=== PATIENT | male | born 1965 | race Caucasian/White ===

== ENCOUNTER 2025-01-28 21:31 | Observation (INO) ==
[2025-01-28 22:03] LABS: Appearance Urine Clear (Clear); Glucose Urine UA Negative (Negative)
[2025-01-28 22:04] LABS: Hematocrit (blood only) 41.2 % (42.0-52.0); Hemoglobin 14.2 g/dl (14.0-18.0); Immature Granulocytes # (auto) 0.02 K/uL (0.01-0.20); Immature Granulocytes % (auto) 0.2 %; Mean Corpuscular Hemoglobin 29.8 pg (25.0-34.0); Mean Corpuscular Volume 86.6 fL (80.0-100.0); Platelet Count 157 K/uL (130-400); RDW Standard Deviation 41.9 fL (36.4-46.3); Red Blood Count 4.76 M/uL (4.70-6.10); White Blood Count 9.10 K/ul (4.8-10.8)
[2025-01-28] MEDS: ONDANSETRON INJ 2 MG/ML 2 ML VIAL IV STA (22:08)
[2025-01-28 22:20] LABS: Alanine Aminotransferase 22.0 U/L (7-52); Albumin Globulin Ratio 1.5 (0.9-2); Alkaline Phosphatase 46.0 U/L (34-104); Anion Gap 8.0 (3-11); Bilirubin,Total 0.8 mg/dl (0.2-1.0); Blood Urea Nitrogen 13.0 mg/dl (6-23); Calcium 9.1 mg/dl (8.6-10.3); Carbon Dioxide 23.0 mmol/L (21-32); Chloride 105.0 mmol/L (98-107); Creatinine Clr Calc Pharmacy 132.0 ml/min; Globulin 3.0 gm/dl (2.5-4.0); Glucose 115.0 mg/dl (70-99(Fasting)); Lipase 22.0 U/L (11-82); Potassium 3.6 mmol/L (3.5-5.1); Sodium 136.0 mmol/L (136-145); Total Protein 7.4 gm/dl (6.0-8.3)
--- NOTE | 2025-01-28 22:56 | Emergency Department Note ---
Impression & Plan Abdominal pain, acute, right upper quadrant, Acute cholecystitis, Cholelithiasis ED Provider Note HISTORY OF PRESENT ILLNESS: Patient is a 59-year-old male presenting with abdominal pain and nausea. Patient reports that he started having generalized abdominal pain earlier this afternoon that has progressively worsened. He has had multiple episodes of nausea and dry heaving but has not vomited. Denies any diarrhea. He reports subjective fevers, stating he gets diaphoretic with the increased intensity and pain. Currently rates the pain an 8 out of 10 and describes it as "the most severe cramps have ever had." He denies any history of abdominal surgeries. He has a history of coronary bypass and is on aspirin and Xarelto. He denies any recent sick contact exposures. Denies any dysuria or hematuria. ROS: as above PHYSICAL EXAM: Constitutional: Patient appears in no acute distress. HENT: Head: Normocephalic and atraumatic. Eyes: EOMI, PERRL Mouth/Throat: Mucous membranes moist. Neck: Trachea midline. Neck supple. Cardiovascular: RRR, No murmurs, rubs or gallops. Intact distal pulses. Pulmonary/Chest: No respiratory distress. Breath sounds clear and equal bilaterally. No wheezes or rales. Abdominal: Abdomen soft, no rebound or guarding. RUQ TTP Musculoskeletal: No edema, tenderness or deformity noted. Skin: Warm and dry. No rash, erythema, pallor or cyanosis Psychiatric: Appropriate mood and affect for situation. Neurological: Alert and keenly responsive. CN II-XII grossly intact, moving all extremities equally and fully. MDM: - Vitals signs showed hypertension - History obtained via parent. History as above. - Chronic conditions affecting care: HTN; HLD; CAD (s/p CABG on Xarelto); GERD - Differential diagnoses include, but are not limited to: Biliary colic; cholangitis; cholecystitis; hepatitis; right lower lobe pneumonia; pulmonary embolism; pyelonephritis; herpes zoster; perforated duodenal ulcer - Order placed for continuous cardiac monitoring. At this time, monitor showed rate of 53 bpm with normal sinus rhythm, per my interpretation. - External medical records reviewed. [facility] practice office visit note dated 04/30/2024 was reviewed. Patient was seen for routine follow-up. He is noted to have an extensive cardiac history. He is status post three-vessel CABG as of 2018. - Laboratory workup interpreted by myself showed - CT abdomen/pelvis with IV contrast showed distended gallbladder and cholelithiasis. - US gallbladder obtained. Images were reviewed by myself and showed a large stone in the gallbladder neck and free fluid adjacent to the gallbladder, per my interpretation. home service technician notes the patient was positive for Moore sign. - Discussed case with general surgeon on-call, Dr. Penn, at 00:44. [place] request n.p.o. after midnight and admit to medicine for IV antibiotics and medical clearance. He initially stated that the patient would be put on the OR schedule for tomorrow if medically cleared. However, patient is on Xarelto and he states that his Xarelto will need to be held so the surgery cannot occur tomorrow, but still plan for admission for IV antibiotics and surgical consultation. - IV zosyn ordered - Discussion was had with case managers about patient's case and need for admission - Hospitalist consulted for admission at 1:30 AM on 01/29/2025 - [facility] ASSESSMENT AND PLAN: Diagnosis: Acute right upper quadrant abdominal pain; acute cholecystitis; cholelithiasis Plan: Admit Past Med/Surg History Problem List (Updated 01/29/25 @ 00:57 by Genevieve Du MD) Cholelithiasis (Acute) Acute cholecystitis (Acute) Abdominal pain, acute, right upper quadrant (Acute) Chest pain Palpitations Coronary disease Medical History On anticoagulant therapy xarelto daily Hyperlipidemia HTN (hypertension) GERD (gastroesophageal reflux disease) controlled Prediabetes Palpitations chronic, intermittent Hx of chest pain Coronary disease follows w/ Dr Leann GARZON (shortness of breath on exertion) cardiac related Surgical History Hx of cardiac catheterization last done 04/2023- no stents; 07/2021, 2020 and 2017 total of 5 stents over 3 procedures all done at [facility] History of coronary artery bypass graft x 3 05/2018- [facility]. Social History Smoking Status: Never smoker Second Hand Exposure: No; Do You Dip or Chew Tobacco: No; Hx Alcohol Use: No Hx Substance Use: No Preferred Language: Mexican Communication Ability: Effective Wood Products Manufacturer Required: No Beliefs That Will Affect Care: None Current Living Situation: Spouse Feels Safe at Home: Yes Assistive Devices: Glasses Allergies Allergies Allergy/AdvReac Type Severity Reaction Status Date / Time No Known Allergies Allergy Verified 01/28/25 23:05 Home Meds Home Medications Medication Instructions Recorded Confirmed ascorbate calcium (vitamin C) 500 500 mg PO DAILY 11/28/23 01/28/25 mg tablet isosorbide mononitrate 60 mg 60 mg PO QAM 11/28/23 01/28/25 tablet,extended release 24 hr nitroglycerin 0.4 mg sublingual 0.4 mg sublingual Q5M PRN Chest 11/28/23 01/28/25 tablet Pain omega-3 fatty acids 1,000 mg 1,000 mg PO DAILY 11/28/23 01/28/25 capsule rivaroxaban 2.5 mg tablet (Xarelto) 2.5 mg PO BID 11/28/23 01/28/25 rosuvastatin 40 mg tablet 40 mg PO HS 11/28/23 01/28/25 cyanocobalamin (vitamin B-12) 1,000 mcg PO DAILY 01/28/25 01/28/25 1,000 mcg tablet (Vitamin B-12) Previous Rx's Medication Instructions Recorded pantoprazole 40 mg tablet,delayed 40 mg PO DAILY #90 tabs 02/22/24 release amlodipine 2.5 mg tablet 2.5 mg PO HS #90 tabs 05/05/24 aspirin 81 mg chewable tablet 81 mg PO DAILY #90 tabs 05/05/24 ezetimibe 10 mg tablet (Zetia) 10 mg PO HS #90 tabs 05/05/24 Results & Data (ED) Vital Signs Vital Signs - 24 hr 01/28/25 21:35 01/28/25 21:42 01/28/25 21:42 Temperature 36.4 C L Temperature Source Temporal Artery Scan Pulse Rate 61 Pulse Rate [Finger] 61 Pulse Rhythm [Finger] Regular Pulse Strength [Finger] Normal Respiratory Rate 20 20 Respiratory Effort / Characteristics Non-Labored Spontaneous Non-Labored Spontaneous Respiratory Depth Normal Normal Respiratory Pattern Regular Regular Blood Pressure 183/86 H Blood Pressure [Right Arm] 175/102 H Blood Pressure Mean 118 Blood Pressure Mean [Right Arm] 126 Blood Pressure Position [Right Arm] Lying Pulse Oximetry 100 98 Oxygen Delivery Method Room Air Room Air Room Air Sepsis Recent Fever Within 48 Hours No Sepsis New/Unexplained Change in Mental Status No Sepsis Action Taken by Nursing No Action Required 01/28/25 22:49 01/29/25 00:59 Temperature Temperature Source Pulse Rate 52 L Pulse Rate [Finger] 55 L Pulse Rhythm [Finger] Pulse Strength [Finger] Respiratory Rate 20 Respiratory Effort / Characteristics Respiratory Depth Respiratory Pattern Blood Pressure Blood Pressure [Right Arm] 158/89 H Blood Pressure Mean Blood Pressure Mean [Right Arm] 112 Blood Pressure Position [Right Arm] Pulse Oximetry 98 Oxygen Delivery Method Room Air Sepsis Recent Fever Within 48 Hours Sepsis New/Unexplained Change in Mental Status Sepsis Action Taken by Nursing Laboratory Data 01/28/25 21:47 01/28/25 21:47 Lab Results 01/28/25 Range/Units 21:47 WBC 9.10 (4.8-10.8) K/ul RBC 4.76 (4.70-6.10) M/uL Hgb 14.2 (14.0-18.0) g/dl Hct 41.2 L (42.0-52.0) % MCV 86.6 (80.0-100.0) fL MCH 29.8 (25.0-34.0) pg MCHC 34.5 (32.0-36.0) g/dL RDW Std Deviation 41.9 (36.4-46.3) fL RDW Coeff of Roman 13.2 (11.5-14.5) % Plt Count 157 (130-400) K/uL MPV 10.1 (9.4-12.4) fL Immature Gran % (Auto) 0.2 % Neut % (Auto) 76.4 % Lymph % (Auto) 12.9 % [place] % (Auto) 9.3 % Eos % (Auto) 1.0 % Baso % (Auto) 0.2 % Neut # (Auto) 6.95 H (1.40-6.50) K/uL Lymph # (Auto) 1.17 L (1.20-3.40) K/uL [place] # (Auto) 0.85 H (0.11-0.59) K/uL Eos # (Auto) 0.09 (0.00-0.50) K/uL Baso # (Auto) 0.02 (0.00-0.20) K/uL Immature Gran # (Auto) 0.02 (0.01-0.20) K/uL Sodium 136 (136-145) mmol/L Potassium 3.6 (3.5-5.1) mmol/L Chloride 105 (98-107) mmol/L Carbon Dioxide 23 (21-32) mmol/L Anion Gap 8 (3-11) BUN 13 (6-23) mg/dl Creatinine 0.73 (0.6-1.4) mg/dl Est Cr Clr Drug Dosing 132.0 ml/min eGFR 103.51 BUN/Creatinine Ratio 17.8 (10-20) Glucose 115 H (70-99(Fasting)) mg/dl Lactate 1.6 (0.4-2.0) mmol/L Calcium 9.1 (8.6-10.3) mg/dl Total Bilirubin 0.8 (0.2-1.0) mg/dl AST 21 (13-39) U/L ALT 22 (7-52) U/L Alkaline Phosphatase 46 (34-104) U/L Total Protein 7.4 (6.0-8.3) gm/dl Albumin 4.4 (3.4-5.0) gm/dl Globulin 3.0 (2.5-4.0) gm/dl Albumin/Globulin Ratio 1.5 (0.9-2) Lipase 22 (11-82) U/L Urine Color Yellow Urine Appearance Clear (Clear) Urine pH 7.5 (4.5-7.5) Ur Specific [place] 1.022 (1.000-1.030) Urine Protein Negative (Negative) Urine Glucose (UA) Negative (Negative) Urine Ketones Negative (Negative) Urine Blood Negative (Negative) Urine Nitrite Negative (Negative) Urine Bilirubin Negative (Negative) Urine Urobilinogen Negative (Negative) Ur Leukocyte Esterase Negative (Negative) Urine Comment Administered Medications Discontinued Medications Fentanyl Citrate (Fentanyl Citrate Pf 100 Mcg/2 Ml Vial) 50 mcg IV NOW STA Stop: 01/28/25 22:01 Last Admin: 01/28/25 22:08 Dose: 50 mcg Documented By: NAW Piperacillin Sod/Tazobactam Sod (Zosyn) 4.5 gm in 100 mls @ 200 mls/hr IV NOW ONE; Protocol Stop: 01/29/25 01:11 Last Admin: 01/29/25 00:58 Dose: 200 mls/hr Documented By: CATALINA Ioversol (Optiray 320 100ml) 100 ml IV ONCE ONE Stop: 01/28/25 23:10 Last Admin: 01/28/25 23:09 Dose: 93 ml Documented By: ROBYN Ondansetron HCl (Ondansetron Inj 2 Mg/Ml 2 Ml Vial) 4 mg IV NOW STA Stop: 01/28/25 22:01 Last Admin: 01/28/25 22:08 Dose: 4 mg Documented By: KONG Imaging Data Radiologist's Impression: Abdomen/Pelvis CT 01/28/25 21:42 Exam(s): CT ABDOMEN + PELVIS With Contrast IV Amt: 93 ML OPTIRAY 320 EXAM: CT Abdomen and Pelvis With Intravenous Contrast CLINICAL HISTORY: Reason for exam: abd pain; nausea. TECHNIQUE: Axial computed tomography images of the abdomen and pelvis with intravenous contrast. CTDI is 27.54 mGy and DLP is 1420.38 mGy-cm. Automated exposure control was utilized for the study. A dose lowering technique was utilized adhering to the principles of ALARA. CONTRAST: Patient received 93 ML OPTIRAY 320 of IV contrast COMPARISON: None. FINDINGS: Lung bases: Left basilar linear/patchy areas of atelectasis/consolidation seen with trace left pleural fluid.. Mildly enlarged heart. Calcified coronary arterial atherosclerosis. ABDOMEN: Liver: Unremarkable. Focal fatty infiltration along the falciform ligament. No solid mass. Gallbladder and bile ducts: Distended gallbladder. A 2.0 cm and a 1.1 cm calcified stone in the neck of the bladder seen.. No ductal dilation. Pancreas: No contour deforming mass identified. No ductal dilation. Spleen: Unremarkable. No splenomegaly. Adrenals: Unremarkable. No mass. Kidneys and ureters: Unremarkable. No solid mass. No hydronephrosis. Stomach and bowel: A small hiatal hernia. No obstruction. Descending colonic/sigmoid diverticulosis coli. No evidence of acute diverticulitis. No mucosal thickening. PELVIS: Appendix: No findings to suggest acute appendicitis. Bladder: Unremarkable. No mass. Reproductive: Unremarkable as visualized. ABDOMEN and PELVIS: Intraperitoneal space: No free air. No significant fluid collection. Bones/joints: No acute fracture. No dislocation. A T9 vertebral compression deformity of indeterminate age. Soft tissues: Unremarkable. Vasculature: Diffuse calcified atherosclerosis of the aortoiliac vasculature.. No abdominal aortic aneurysm. Lymph nodes: Unremarkable. No enlarged lymph nodes. Other findings: Small fat-containing bilateral inguinal hernias IMPRESSION: Distended gallbladder. Cholelithiasis. Sigmoid diverticulosis coli. No evidence of acute diverticulitis. Left lung base: Linear and patchy areas of atelectasis/consolidation seen with a trace left pleural fluid. Calcified/noncalcified atherosclerotic disease. . Electronically signed by: Leon Quan MD, SAMEER 01/29/25 00:15 AM Discharge Plan Visit Data Chief Complaint: Abdominal Pain Stated Complaint: ABD PAIN ED Provider: Genevieve Du Discharge Problem: Abdominal pain, acute, right upper quadrant, Acute cholecystitis, Cholelithiasis Condition: Fair Forms Stand Alone Forms: My [facility] Prescriptions Prescriptions: No Action pantoprazole 40 mg tablet,delayed release (DR/EC) 40 mg PO DAILY Qty: 90 3RF amlodipine 2.5 mg tablet 2.5 mg PO HS Qty: 90 3RF aspirin 81 mg tablet,chewable 81 mg PO DAILY Qty: 90 3RF ezetimibe [Zetia] 10 mg tablet 10 mg PO HS Qty: 90 3RF ascorbate calcium (vitamin C) 500 mg tablet 500 mg PO DAILY isosorbide mononitrate 60 mg tablet extended release 24 hr 60 mg PO QAM nitroglycerin 0.4 mg tablet, sublingual 0.4 mg sublingual Q5M PRN (Reason: Chest Pain) Rx Instructions: do not exceed 3 doses per episode omega-3 fatty acids 1,000 mg capsule 1,000 mg PO DAILY rosuvastatin 40 mg tablet 40 mg PO HS Xarelto 2.5 mg tablet 2.5 mg PO BID cyanocobalamin (vitamin B-12) [Vitamin B-12] 1,000 mcg Tablet 1,000 mcg PO DAILY Referrals Referrals: Annalisa Herman DO [Primary Care Provider] -
[2025-01-28] MEDS: OPTIRAY 320 100ml IV ONE (23:09)
--- NOTE | 2025-01-29 00:16 | CT Scan Report ---
Exam(s): CT ABDOMEN + PELVIS With Contrast IV Amt: 93 ML OPTIRAY 320 EXAM: CT Abdomen and Pelvis With Intravenous Contrast CLINICAL HISTORY: Reason for exam: abd pain; nausea. TECHNIQUE: Axial computed tomography images of the abdomen and pelvis with intravenous contrast. CTDI is 27.54 mGy and DLP is 1420.38 mGy-cm. Automated exposure control was utilized for the study. A dose lowering technique was utilized adhering to the principles of ALARA. CONTRAST: Patient received 93 ML OPTIRAY 320 of IV contrast COMPARISON: None. FINDINGS: Lung bases: Left basilar linear/patchy areas of atelectasis/consolidation seen with trace left pleural fluid.. Mildly enlarged heart. Calcified coronary arterial atherosclerosis. ABDOMEN: Liver: Unremarkable. Focal fatty infiltration along the falciform ligament. No solid mass. Gallbladder and bile ducts: Distended gallbladder. A 2.0 cm and a 1.1 cm calcified stone in the neck of the bladder seen.. No ductal dilation. Pancreas: No contour deforming mass identified. No ductal dilation. Spleen: Unremarkable. No splenomegaly. Adrenals: Unremarkable. No mass. Kidneys and ureters: Unremarkable. No solid mass. No hydronephrosis. Stomach and bowel: A small hiatal hernia. No obstruction. Descending colonic/sigmoid diverticulosis coli. No evidence of acute diverticulitis. No mucosal thickening. PELVIS: Appendix: No findings to suggest acute appendicitis. Bladder: Unremarkable. No mass. Reproductive: Unremarkable as visualized. ABDOMEN and PELVIS: Intraperitoneal space: No free air. No significant fluid collection. Bones/joints: No acute fracture. No dislocation. A T9 vertebral compression deformity of indeterminate age. Soft tissues: Unremarkable. Vasculature: Diffuse calcified atherosclerosis of the aortoiliac vasculature.. No abdominal aortic aneurysm. Lymph nodes: Unremarkable. No enlarged lymph nodes. Other findings: Small fat-containing bilateral inguinal hernias IMPRESSION: Distended gallbladder. Cholelithiasis. Sigmoid diverticulosis coli. No evidence of acute diverticulitis. Left lung base: Linear and patchy areas of atelectasis/consolidation seen with a trace left pleural fluid. Calcified/noncalcified atherosclerotic disease. . Electronically signed by: Leon Quan MD, DABR 01/29/25 00:15 AM
[2025-01-29] MEDS: PIPERACILLIN/TAZOBACTAM 4.5 GM/100 ML BAG IV ONE (00:58)
--- NOTE | 2025-01-29 01:43 | Ultrasound Report ---
EXAM: US gallbladder CLINICAL HISTORY: Right upper quadrant abdominal pain. TECHNIQUE: Limited ultrasound of the liver and gallbladder was performed in greyscale and Doppler. Multiple images were obtained in transverse and longitudinal planes. COMPARISON: No prior studies are available for comparison. FINDINGS: Liver: Liver appears mildly enlarged in size, measuring 16.6 cm, with increased parenchymal echogenicity. No evidence of focal lesions, cysts, or masses. Hepatic vasculature appears normal. Gallbladder: The gallbladder is distended, measuring 10.9 cm in length. Wall thickness measures 3 mm. Mild sludge is noted in the gallbladder lumen. A large stone is seen in the neck of the gallbladder, measuring about 2.7 x 1.5 cm. Mild pericholecystic free fluid is seen. Moore's sign is positive. Biliary Tree: Common bile duct diameter: 5 mm. Pancreas; The visualized pancreas is within normal limits. The tail of the pancreas is obscured by the gut gases. Right kidney; It measures 12.9 cm in length. Normal parenchymal echotexture with adequate cortical thickness. No hydronephrosis is seen. IMPRESSION: 1. Distended gallbladder containing mild sludge, GB neck stone, and mild pericholecystic free fluid with positive Moore sign representing acute cholecystitis. 2. Hepatomegaly with grade 2 fatty liver. 3. Clinical and lab correlation is recommended. Electronically signed by Reinier Whyte 01-29-2025 01:43 AM
--- NOTE | 2025-01-29 01:47 | History & Physical Report ---
Date of Service January 29, 2025 Assessment & Plan (1) Acute cholecystitis: (2) Cholelithiasis: Plan 59-year-old male PMHx anemia, A-fib on rivaroxaban, GERD, MAY, prediabetes, CAD s/p CABG x 3 (2018) and stent who presents for nausea and feelings of being fever starting day of arrival as well as abdominal pain. ED evaluation reveals CBC without leukocytosis, H&H 14.2/41.2; CMP grossly unremarkable with exception of glucose 115; lactate 1.6; lipase 22; UA negative for infection; CTAP distended gallbladder with cholelithiasis, sigmoid diverticulosis coli, no acute diverticulitis, linear patchy areas of atelectasis/consolidation with a trace L pleural effusion, calcified/noncalcified atherosclerotic disease; gallbladder ultrasound distended GB containing sludge, neck stone, mild pericholecystic free fluid with positive Moore sign (acute cholecystitis), hepatomegaly grade 2 fa tty liver;. Provided with Zosyn 4.5 g IV, Zofran 4 mg IV, and fentanyl 50 mcg in ED. #Acute cholecystitis/Cholelithiasis Presenting with abdominal pain, nausea, and feelings of fever starting day of arrival. - CBC without leukocytosis, stable H&H; CMP grossly unremarkable, LFTs WNL; lactate 1.6; lipase 22 - CBC, BMP am - CTAP distended GB with cholelithiasis - GBUS distended GB containing sludge, neck stone, mild pericholecystic free fluid with positive Moore sign (acute cholecystitis), hepatomegaly grade 2 fatty liver - NPO - LR @ 100 mL/hr - Zofran as needed N/V - Dilaudid prn pain - deescalate as patient tolerates - Zosyn 4.5 g IV started - continue - Gen sx consulted - appreciate input + recs #A-fib/CAD s/p CABG (2018) x 3 and stents/HLD- EKG pending; amlodipine, Imdur, Xarelto, ezetimibe, rosuvastatin - continue all EXCEPT Xarelto #GERD- Pantoprazole - continue #Anemia- H/H 14.2/41.2 on admission, no bleeding - Trend CBC #MAY- CPAP HS - continue Dispo: Admit, med/sx VTE Prophylaxis: SCDs, HOLD XARELTO (also holding ASA) This document was dictated utilizing Interactive Fate. Please excuse any grammatical errors that may be secondary to use of this software. Admission and Anticipated Discharge Date Admission Date: 01/29/2025 History of Present Illness Chief Complaint: Abdominal pain Primary Care Provider: Annalisa Herman DO 59-year-old male PMHx anemia, A-fib on rivaroxaban, GERD, MAY, prediabetes, CAD s/p CABG x 3 (2018) and stent who presents for nausea and feelings of being fever starting day of arrival as well as abdominal pain. Patient states that the morning [employer] he woke up and had breakfast. Following eating his meal, he started feel "uncomfortable". He states that this discomfort lasted throughout the day, describing symptoms as gas pains that would come and go in different way to severity but was always present. It was spread across to his entire abdomen but was more so localized to the RUQ. He did have nausea with an episode of vomiting and states that only bile came out. [place] warm and sweaty during episode of vomiting, but no reported fever. At around 1600 he states that the pain became much worse and almost intolerable. At its worst, the pain was an 8 out of 10 on the pain scale. At present the pain is a 2 out of 10 on the pain scale. He has not had this happen before. No fever or chills, no sick contacts, BM normal. Patient does occasionally experience palpitations, none at present. Denies chest pain, SOB, diarrhea/constipation, LUTS, URI symptoms, fever/chills, numbness/tingling, LUTS, weakness, or syncope. His last dose of Xarelto was the morning [employer]GUIDE (01/28/2025). ED evaluation reveals CBC without leukocytosis, H&H 14.2/41.2; CMP grossly unremarkable with exception of glucose 115; lactate 1.6; lipase 22; UA negative for infection; CTAP distended gallbladder with cholelithiasis, sigmoid diverticulosis coli, no acute diverticulitis, linear patchy areas of atelectasis/consolidation with a trace L pleural effusion, calcified/noncalcified atherosclerotic disease; gallbladder ultrasound distended GB containing sludge, neck stone, mild pericholecystic free fluid with positive Moore sign (acute cholecystitis), hepatomegaly grade 2 fatty liver;. Provided with Zosyn 4.5 g IV, Zofran 4 mg IV, and fentanyl 50 mcg in ED. Please see Dr. Granados's attestation for adjustments/additions to treatment plan. Allergies Allergy/AdvReac Type Severity Reaction Status Date / Time No Known Allergies Allergy Verified 01/28/25 23:05 Home Medications Medication Instructions Recorded Confirmed Type ascorbate calcium (vitamin C) 500 500 mg PO DAILY 11/28/23 01/28/25 History mg tablet isosorbide mononitrate 60 mg 60 mg PO QAM 11/28/23 01/28/25 History tablet,extended release 24 hr nitroglycerin 0.4 mg sublingual 0.4 mg sublingual Q5M PRN Chest 11/28/2301/28 History tablet Pain omega-3 fatty acids 1,000 mg 1,000 mg PO DAILY 11/28/23 01/28/25 History capsule rivaroxaban 2.5 mg tablet (Xarelto) 2.5 mg PO BID 11/28/23 01/28/25 History rosuvastatin 40 mg tablet 40 mg PO HS 11/28/23 01/28/25 History pantoprazole 40 mg tablet,delayed 40 mg PO DAILY #90 tabs 02/22/24 01/28/25 Rx release amlodipine 2.5 mg tablet 2.5 mg PO HS #90 tabs 05/05/24 01/28/25 Rx aspirin 81 mg chewable tablet 81 mg PO DAILY #90 tabs 05/05/24 01/28/25 Rx ezetimibe 10 mg tablet (Zetia) 10 mg PO HS #90 tabs 05/05/24 01/28/25 Rx cyanocobalamin (vitamin B-12) 1,000 mcg PO DAILY 01/28/25 01/28/25 History 1,000 mcg tablet (Vitamin B-12) Past Med/Surg History Problem List Cholelithiasis (Acute) Acute cholecystitis (Acute) Abdominal pain, acute, right upper quadrant (Acute) Chest pain Palpitations Coronary disease Medical History On anticoagulant therapy xarelto daily Hyperlipidemia HTN (hypertension) GERD (gastroesophageal reflux disease) controlled Prediabetes Palpitations chronic, intermittent Hx of chest pain Coronary disease follows w/ Dr Leann GARZON (shortness of breath on exertion) cardiac related Surgical History Hx of cardiac catheterization last done 04/2023- no stents; 07/2021, 2020 and 2017 total of 5 stents over 3 procedures all done at [facility] History of coronary artery bypass graft x 3 05/2018- [facility]. Social History Smoking Status: Never smoker Second Hand Exposure: No; Do You Dip or Chew Tobacco: No; Hx Alcohol Use: No Hx Substance Use: No Preferred Language: Telugu Communication Ability: Effective Health Information Tech Required: No Beliefs That Will Affect Care: None Current Living Situation: Spouse Feels Safe at Home: Yes Assistive Devices: Glasses Review of Systems Review of Systems: All systems reviewed & are unremarkable except as noted in Subjective Physical Exam Physical Exam: General: No acute distress Skin: Warm and dry Head: Normocephalic, atraumatic Eyes: PERRL, conjunctivae clear, sclera non-icteric ENT: External ear and ear canal without swelling; nose atraumatic; fair dentition, tongue normal appearance, pharynx normal Neck: Supple, no LAD Cardio: RRR, no M/G/R, S1 and S2 normal Resp: No respiratory distress, Lungs CTA in all lobes bilaterally, no wheezes, rales, or rhonchi Abdomen: Soft, symmetric, tenderness to palpation RUQ, positive Moore sign; No masses or hepatosplenomegaly; Bowel sounds normoactive MSK: No deformities; pulses palpable and equal; no edema. Neuro: Awake, alert; Sensation intact bilaterally; CN grossly intact Psych: Appropriate mood and affect; good judgement and insight. Results & Data Results & Data Vital Signs (Past 12 Hours) Vital Signs Temp Pulse Pulse Resp BP BP Pulse Ox 01/29/25 00:59 55 L 20 158/89 H 98 01/28/25 22:49 52 L 01/28/25 21:42 01/28/25 21:42 61 20 175/102 H 98 01/28/25 21:35 36.4 C L 61 20 183/86 H 100 O2 Del Method 01/29/25 00:59 Room Air 01/28/25 22:49 01/28/25 21:42 Room Air 01/28/25 21:42 Room Air 01/28/25 21:35 Room Air Laboratory Results 01/28/25 21:47 WBC 9.10 RBC 4.76 Hgb 14.2 Hct 41.2 L MCV 86.6 MCH 29.8 MCHC 34.5 RDW Std Deviation 41.9 RDW Coeff of Roman 13.2 Plt Count 157 MPV 10.1 Immature Gran % (Auto) 0.2 Neut % (Auto) 76.4 Lymph % (Auto) 12.9 [place] % (Auto) 9.3 Eos % (Auto) 1.0 Baso % (Auto) 0.2 Neut # (Auto) 6.95 H Lymph # (Auto) 1.17 L [place] # (Auto) 0.85 H Eos # (Auto) 0.09 Baso # (Auto) 0.02 Immature Gran # (Auto) 0.02 Sodium 136 Potassium 3.6 Chloride 105 Carbon Dioxide 23 Anion Gap 8 BUN 13 Creatinine 0.73 Est Cr Clr Drug Dosing 132.0 eGFR 103.51 BUN/Creatinine Ratio 17.8 Glucose 115 H Lactate 1.6 Calcium 9.1 Total Bilirubin 0.8 AST 21 ALT 22 Alkaline Phosphatase 46 Total Protein 7.4 Albumin 4.4 Globulin 3.0 Albumin/Globulin Ratio 1.5 Lipase 22 Urine Color Yellow Urine Appearance Clear Urine pH 7.5 Ur Specific [place] 1.022 Urine Protein Negative Urine Glucose (UA) Negative Urine Ketones Negative Urine Blood Negative Urine Nitrite Negative Urine Bilirubin Negative Urine Urobilinogen Negative Ur Leukocyte Esterase Negative Urine Comment Diagnostic Findings Abdomen/Pelvis CT 01/28/25 21:42 Exam(s): CT ABDOMEN + PELVIS With Contrast IV Amt: 93 ML OPTIRAY 320 EXAM: CT Abdomen and Pelvis With Intravenous Contrast CLINICAL HISTORY: Reason for exam: abd pain; nausea. TECHNIQUE: Axial computed tomography images of the abdomen and pelvis with intravenous contrast. CTDI is 27.54 mGy and DLP is 1420.38 mGy-cm. Automated exposure control was utilized for the study. A dose lowering technique was utilized adhering to the principles of ALARA. CONTRAST: Patient received 93 ML OPTIRAY 320 of IV contrast COMPARISON: None. FINDINGS: Lung bases: Left basilar linear/patchy areas of atelectasis/consolidation seen with trace left pleural fluid.. Mildly enlarged heart. Calcified coronary arterial atherosclerosis. ABDOMEN: Liver: Unremarkable. Focal fatty infiltration along the falciform ligament. No solid mass. Gallbladder and bile ducts: Distended gallbladder. A 2.0 cm and a 1.1 cm calcified stone in the neck of the bladder seen.. No ductal dilation. Pancreas: No contour deforming mass identified. No ductal dilation. Spleen: Unremarkable. No splenomegaly. Adrenals: Unremarkable. No mass. Kidneys and ureters: Unremarkable. No solid mass. No hydronephrosis. Stomach and bowel: A small hiatal hernia. No obstruction. Descending colonic/sigmoid diverticulosis coli. No evidence of acute diverticulitis. No mucosal thickening. PELVIS: Appendix: No findings to suggest acute appendicitis. Bladder: Unremarkable. No mass. Reproductive: Unremarkable as visualized. ABDOMEN and PELVIS: Intraperitoneal space: No free air. No significant fluid collection. Bones/joints: No acute fracture. No dislocation. A T9 vertebral compression deformity of indeterminate age. Soft tissues: Unremarkable. Vasculature: Diffuse calcified atherosclerosis of the aortoiliac vasculature.. No abdominal aortic aneurysm. Lymph nodes: Unremarkable. No enlarged lymph nodes. Other findings: Small fat-containing bilateral inguinal hernias IMPRESSION: Distended gallbladder. Cholelithiasis. Sigmoid diverticulosis coli. No evidence of acute diverticulitis. Left lung base: Linear and patchy areas of atelectasis/consolidation seen with a trace left pleural fluid. Calcified/noncalcified atherosclerotic disease. . Electronically signed by: Leon Quan MD, DABR 01/29/25 00:15 AM Gallbladder Ultrasound 01/28/25 22:00 EXAM: US gallbladder CLINICAL HISTORY: Right upper quadrant abdominal pain. TECHNIQUE: Limited ultrasound of the liver and gallbladder was performed in greyscale and Doppler. Multiple images were obtained in transverse and longitudinal planes. COMPARISON: No prior studies are available for comparison. FINDINGS: Liver: Liver appears mildly enlarged in size, measuring 16.6 cm, with increased parenchymal echogenicity. No evidence of focal lesions, cysts, or masses. Hepatic vasculature appears normal. Gallbladder: The gallbladder is distended, measuring 10.9 cm in length. Wall thickness measures 3 mm. Mild sludge is noted in the gallbladder lumen. A large stone is seen in the neck of the gallbladder, measuring about 2.7 x 1.5 cm. Mild pericholecystic free fluid is seen. Moore's sign is positive. Biliary Tree: Common bile duct diameter: 5 mm. Pancreas; The visualized pancreas is within normal limits. The tail of the pancreas is obscured by the gut gases. Right kidney; It measures 12.9 cm in length. Normal parenchymal echotexture with adequate cortical thickness. No hydronephrosis is seen. IMPRESSION: 1. Distended gallbladder containing mild sludge, GB neck stone, and mild pericholecystic free fluid with positive Moore sign representing acute cholecystitis. 2. Hepatomegaly with grade 2 fatty liver. 3. Clinical and lab correlation is recommended. Electronically signed by Reinier Whyte 01-29-2025 01:43 AM Medications Administered Zosyn 4.5 g IV Zofran 4 mg IV Fentanyl 50 mcg IV Code Status & VTE Plan Code Status Full Supervising Physician Co-Signing Physician Notes Patient seen and examined, chart reviewed, case discussed with SUBHASH Garcia I agree with the assessment and plan as document above. Patient with large stone in the neck of the gallbladder with free fluid, possibly early acute cholecystitis - Will provide pain management, antiemetics, Zosyn Hold Xarelto General Surgery consultation appreciated for possible cholecystectomy Remainder as above PG Care Time/CCT Total # of Minutes Spent Total Time Spent with Patient: Total time spent is greater than 50% in coordination of care (as documented) at patient's floor/unit and/or counseling patient: Coding Level of Care Code 12241 INT INP/OBS CARE 3/75MIN Diagnoses Acute cholecystitis K81.0 Cholelithiasis K80.20
[2025-01-29] MEDS ORDERED: ONDANSETRON INJ 2 MG/ML 2 ML VIAL IV PRN ×2 (02:28→04:43)
[2025-01-29] MEDS ORDERED: HYDROmorphone INJ 0.5 MG/0.5 ML SYR IV PRN ×2 (02:28)
[2025-01-29] MEDS: LACTATED RINGER'S 1,000 ML IV SCH (04:26)
[2025-01-29] MEDS ORDERED: NITROGLYCERIN SL 0.4 MG/TAB TAB SL PRN (04:43)
[2025-01-29] MEDS ORDERED: POLYETHYLENE (MIRALAX) 17 GM PACK PO PRN (04:43)
[2025-01-29] MEDS ORDERED: MELATONIN 3 MG TAB PO PRN (04:43)
[2025-01-29] MEDS: PIPERACILLIN/TAZOBACTAM 4.5 GM/100 ML BAG IV SCH (06:24)
[2025-01-29] MEDS: ISOSORBIDE MONO EXTENDED REL 60 MG TABCR PO SCH (08:34)
[2025-01-29 09:00] LABS: Hematocrit (blood only) 41.6 % (42.0-52.0); Hemoglobin 14.1 g/dl (14.0-18.0); Mean Corpuscular Hemoglobin 29.3 pg (25.0-34.0); Mean Corpuscular Volume 86.3 fL (80.0-100.0); Platelet Count 142 K/uL (130-400); RDW Standard Deviation 41.7 fL (36.4-46.3); Red Blood Count 4.82 M/uL (4.70-6.10); White Blood Count 8.20 K/ul (4.8-10.8)
[2025-01-29 09:16] LABS: Alanine Aminotransferase 17.0 U/L (7-52); Albumin Globulin Ratio 1.6 (0.9-2); Alkaline Phosphatase 44.0 U/L (34-104); Anion Gap 6.0 (3-11); Bilirubin,Total 0.9 mg/dl (0.2-1.0); Blood Urea Nitrogen 8.0 mg/dl (6-23); Calcium 8.7 mg/dl (8.6-10.3); Carbon Dioxide 25.0 mmol/L (21-32); Chloride 106.0 mmol/L (98-107); Creatinine Clr Calc Pharmacy 139.6 ml/min; Globulin 2.7 gm/dl (2.5-4.0); Glucose 102.0 mg/dl (70-99(Fasting)); Potassium 4.0 mmol/L (3.5-5.1); Sodium 137.0 mmol/L (136-145); Total Protein 6.9 gm/dl (6.0-8.3)
--- NOTE | 2025-01-29 10:12 | Surgery Consultation ---
Date of Consultation January 29, 2025 Assessment & Plan (1) Acute cholecystitis: (2) Cholelithiasis: (3) Abdominal pain, acute, right upper quadrant: (4) Coronary disease: Plan 59 yo male with extensive coronary artery disease s/p triple bypass in 2018 and 5 cardiac stents since bypass presented to ED with complaint of increasing upper abdominal pain with nausea and sweats since yesterday morning. Imaging showing 2.0 cm gallstone in neck of gallbladder with wall thickening and fluid consistent with acute cholecystitis. No leukocytosis. Pain controlled with medications. On Xarelto given CAD history and last dose was 01/28/25 in the morning. Continue to hold Xarelto. Cardiac clearance given history and will determine surgical timing. Continue IV Zosyn, pain management as needed, IV fluids. Clear liquids okay for today. NPO after midnight. Discussed with Dr. Penn who agrees with above. History of Present Illness Reason for Consultation: acute calculous cholecystitis Requesting Physician: Genevieve Du MD Attending Physician: Kevin Browne MD History of Present Illness Sherif is a 59 yo male with history of CAD with triple bypass in 2018 and 5 cardiac stents after bypass who presented to emergency department with increasin g upper abdominal pain that started yesterday morning and progressed throughout the day associated with nausea and dry heaves. No prior history of gallbladder issues. No abdominal surgery. Denies fever, chills, vomiting, chest pain , diarrhea, blood in stools, acholic stools, difficulty urinating, blood in urine, jaundice. Takes Xarelto and last dose was yesterday morning. States he has history of chronic shortness of breath with any activity since his bypass in 2018. Follows with cardiology, believes last ECHO was within the past year. Allergies Allergy/AdvReac Type Severity Reaction Status Date / Time No Known Allergies Allergy Verified 01/28/25 23:05 Home Medications Medication Instructions Recorded Confirmed Type ascorbate calcium (vitamin C) 500 500 mg PO DAILY 11/28/23 01/28/25 History mg tablet isosorbide mononitrate 60 mg 60 mg PO QAM 11/28/23 01/28/25 History tablet,extended release 24 hr nitroglycerin 0.4 mg sublingual 0.4 mg sublingual Q5M PRN Chest 11/28/23 01/28/25 History tablet Pain omega-3 fatty acids 1,000 mg 1,000 mg PO DAILY 11/28/23 01/28/25 History capsule rivaroxaban 2.5 mg tablet (Xarelto) 2.5 mg PO BID 11/28/23 01/28/25 History rosuvastatin 40 mg tablet 40 mg PO HS 11/28/23 01/28/25 History pantoprazole 40 mg tablet,delayed 40 mg PO DAILY #90 tabs 02/22/24 01/28/25 Rx release amlodipine 2.5 mg tablet 2.5 mg PO HS #90 tabs 05/05/24 01/28/25 Rx aspirin 81 mg chewable tablet 81 mg PO DAILY #90 tabs 05/05/24 01/28/25 Rx ezetimibe 10 mg tablet (Zetia) 10 mg PO HS #90 tabs 05/05/24 01/28/25 Rx cyanocobalamin (vitamin B-12) 1,000 mcg PO DAILY 01/28/25 01/28/25 History 1,000 mcg tablet (Vitamin B-12) Patient History Medical History On anticoagulant therapy xarelto daily Hyperlipidemia HTN (hypertension) GERD (gastroesophageal reflux disease) controlled Prediabetes Palpitations chronic, intermittent Hx of chest pain Coronary disease follows w/ Dr Leann GARZON (shortness of breath on exertion) cardiac related Surgical History Hx of cardiac catheterization last done 04/2023- no stents; 07/2021, 2020 and 2017 total of 5 stents over 3 procedures all done at [facility] History of coronary artery bypass graft x 3 05/2018- [facility]. Social History Smoking Status: Never smoker Second Hand Exposure: No; Do You Dip or Chew Tobacco: No; Hx Alcohol Use: No Hx Substance Use: No Preferred Language: Faroese Communication Ability: Effective Flakeboard Line Tender Required: No Beliefs That Will Affect Care: None Current Living Situation: Family Feels Safe at Home: Yes Assistive Devices: Glasses Review of Systems Review of Systems: All systems reviewed & are unremarkable except as noted in HPI & below Physical Exam Constitutional: WD/WN, vitals as above cooperative and comfortable; no acute distress and not ill appearing Respiratory: normal respiratory effort, lungs clear to auscultation Cardiovascular: RRR, no murmur, no edema Gastrointestinal (Abdomen): Inspection/Auscultation: abdomen normal to inspection; abdomen not distended Percussion/Palpation: + abdomen tender (RUQ on deep palpation, + Moore's) and abdomen soft; no guarding, abdomen not rigid and abdomen not firm Skin: no rashes, warm and dry Psychiatric: A+Ox3, euthymic affect Results & Data Vital Signs (Past 12 Hours) Vital Signs Pulse Pulse Resp BP Pulse Ox O2 Del Method 01/29/25 08:00 60 19 145/83 H 96 Room Air 01/29/25 07:10 51 L 16 138/84 97 Room Air 01/29/25 05:35 74 20 140/82 97 Room Air 01/29/25 04:00 72 20 140/86 98 Room Air 01/29/25 00:59 55 L 20 158/89 H 98 Room Air 01/28/25 22:49 52 L Laboratory Results 01/29/25 01/28/25 Range/Units 08:40 21:47 WBC 8.20 9.10 (4.8-10.8) K/ul RBC 4.82 4.76 (4.70-6.10) M/uL Hgb 14.1 14.2 (14.0-18.0) g/dl Hct 41.6 L 41.2 L (42.0-52.0) % MCV 86.3 86.6 (80.0-100.0) fL MCH 29.3 29.8 (25.0-34.0) pg MCHC 33.9 34.5 (32.0-36.0) g/dL RDW Std Deviation 41.7 41.9 (36.4-46.3) fL RDW Coeff of Roman 13.4 13.2 (11.5-14.5) % Plt Count 142 157 (130-400) K/uL MPV 10.4 10.1 (9.4-12.4) fL Immature Gran % (Auto) 0.2 % Neut % (Auto) 76.4 % Lymph % (Auto) 12.9 % [place] % (Auto) 9.3 % Eos % (Auto) 1.0 % Baso % (Auto) 0.2 % Neut # (Auto) 6.95 H (1.40-6.50) K/uL Lymph # (Auto) 1.17 L (1.20-3.40) K/uL [place] # (Auto) 0.85 H (0.11-0.59) K/uL Eos # (Auto) 0.09 (0.00-0.50) K/uL Baso # (Auto) 0.02 (0.00-0.20) K/uL Immature Gran # (Auto) 0.02 (0.01-0.20) K/uL Sodium 137 136 (136-145) mmol/L Potassium 4.0 3.6 (3.5-5.1) mmol/L Chloride 106 105 (98-107) mmol/L Carbon Dioxide 25 23 (21-32) mmol/L Anion Gap 6 8 (3-11) BUN 8 13 (6-23) mg/dl Creatinine 0.69 0.73 (0.6-1.4) mg/dl Est Cr Clr Drug Dosing 139.6 132.0 ml/min eGFR 105.29 103.51 BUN/Creatinine Ratio 11.6 17.8 (10-20) Glucose 102 H 115 H (70-99(Fasting)) mg/dl Lactate 1.6 (0.4-2.0) mmol/L Calcium 8.7 9.1 (8.6-10.3) mg/dl Total Bilirubin 0.9 0.8 (0.2-1.0) mg/dl AST 18 21 (13-39) U/L ALT 17 22 (7-52) U/L Alkaline Phosphatase 44 46 (34-104) U/L Total Protein 6.9 7.4 (6.0-8.3) gm/dl Albumin 4.2 4.4 (3.4-5.0) gm/dl Globulin 2.7 3.0 (2.5-4.0) gm/dl Albumin/Globulin Ratio 1.6 1.5 (0.9-2) Lipase 22 (11-82) U/L Urine Color Yellow Urine Appearance Clear (Clear) Urine pH 7.5 (4.5-7.5) Ur Specific [place] 1.022 (1.000-1.030) Urine Protein Negative (Negative) Urine Glucose (UA) Negative (Negative) Urine Ketones Negative (Negative) Urine Blood Negative (Negative) Urine Nitrite Negative (Negative) Urine Bilirubin Negative (Negative) Urine Urobilinogen Negative (Negative) Ur Leukocyte Esterase Negative (Negative) Urine Comment Diagnostic Findings Exam(s): CT ABDOMEN + PELVIS With Contrast IV Amt: 93 ML OPTIRAY 320 EXAM: CT Abdomen and Pelvis With Intravenous Contrast CLINICAL HISTORY: Reason for exam: abd pain; nausea. TECHNIQUE: Axial computed tomography images of the abdomen and pelvis with intravenous contrast. CTDI is 27.54 mGy and DLP is 1420.38 mGy-cm. Automated exposure control was utilized for the study. A dose lowering technique was utilized adhering to the principles of ALARA. CONTRAST: Patient received 93 ML OPTIRAY 320 of IV contrast COMPARISON: None. FINDINGS: Lung bases: Left basilar linear/patchy areas of atelectasis/consolidation seen with trace left pleural fluid.. Mildly enlarged heart. Calcified coronary arterial atherosclerosis. ABDOMEN: Liver: Unremarkable. Focal fatty infiltration along the falciform ligament. No solid mass. Gallbladder and bile ducts: Distended gallbladder. A 2.0 cm and a 1.1 cm calcified stone in the neck of the bladder seen.. No ductal dilation. Pancreas: No contour deforming mass identified. No ductal dilation. Spleen: Unremarkable. No splenomegaly. Adrenals: Unremarkable. No mass. Kidneys and ureters: Unremarkable. No solid mass. No hydronephrosis. Stomach and bowel: A small hiatal hernia. No obstruction. Descending colonic/sigmoid diverticulosis coli. No evidence of acute diverticulitis. No mucosal thickening. PELVIS: Appendix: No findings to suggest acute appendicitis. Bladder: Unremarkable. No mass. Reproductive: Unremarkable as visualized. ABDOMEN and PELVIS: Intraperitoneal space: No free air. No significant fluid collection. Bones/joints: No acute fracture. No dislocation. A T9 vertebral compression deformity of indeterminate age. Soft tissues: Unremarkable. Vasculature: Diffuse calcified atherosclerosis of the aortoiliac vasculature.. No abdominal aortic aneurysm. Lymph nodes: Unremarkable. No enlarged lymph nodes. Other findings: Small fat-containing bilateral inguinal hernias IMPRESSION: Distended gallbladder. Cholelithiasis. Sigmoid diverticulosis coli. No evidence of acute diverticulitis. Left lung base: Linear and patchy areas of atelectasis/consolidation seen with a trace left pleural fluid. Calcified/noncalcified atherosclerotic disease. EXAM: US gallbladder CLINICAL HISTORY: Right upper quadrant abdominal pain. TECHNIQUE: Limited ultrasound of the liver and gallbladder was performed in greyscale and Doppler. Multiple images were obtained in transverse and longitudinal planes. COMPARISON: No prior studies are available for comparison. FINDINGS: Liver: Liver appears mildly enlarged in size, measuring 16.6 cm, with increased parenchymal echogenicity. No evidence of focal lesions, cysts, or masses. Hepatic vasculature appears normal. Gallbladder: The gallbladder is distended, measuring 10.9 cm in length. Wall thickness measures 3 mm. Mild sludge is noted in the gallbladder lumen. A large stone is seen in the neck of the gallbladder, measuring about 2.7 x 1.5 cm. Mild pericholecystic free fluid is seen. Moore's sign is positive. Biliary Tree: Common bile duct diameter: 5 mm. Pancreas; The visualized pancreas is within normal limits. The tail of the pancreas is obscured by the gut gases. Right kidney; It measures 12.9 cm in length. Normal parenchymal echotexture with adequate cortical thickness. No hydronephrosis is seen. IMPRESSION: 1. Distended gallbladder containing mild sludge, GB neck stone, and mild pericholecystic free fluid with positive Moore sign representing acute cholecystitis. 2. Hepatomegaly with grade 2 fatty liver. 3. Clinical and lab correlation is recommended. Personally reviewed images above and concur with findings
--- NOTE | 2025-01-29 16:48 | Hospitalist Progress Note ---
Date of Service January 29, 2025 Assessment & Plan (1) Acute cholecystitis: (2) Cholelithiasis: Plan 59-year-old male PMHx anemia, A-fib on rivaroxaban, GERD, MAY, prediabetes, CAD s/p CABG x 3 (2017) and stent who presents for nausea and feelings of being fever starting day of arrival as well as abdominal pain. #Acute cholecystitis/Cholelithiasis Presenting with abdominal pain, nausea, and feelings of fever starting day of arrival. CBC w/ no leukocytosis. CMP w/ stable LFTs. Lipase 22 CTAP: distended GB w/ cholelithiasis RUQ US: distended GB containing sludge, neck stone, mild pericholecystic free fluids w/ + greer sign (acute choley); hepatomegaly Continue IVF & IV Zosyn Zofran prn for N/V; Diluadid prn for pain. General surgery consulted --> requires cardiology & clearance and hold on Xarelto. Tentative plans for lap choley 01/29. NPO after midnight. #A-fib/CAD s/p CABG (2018) x 3 and stents/HLD EKG pending Cardiology consulted for clearance prior to surgery. amlodipine, Imdur, Xarelto, ezetimibe, rosuvastatin - continue all EXCEPT Xarelto #GERD- Pantoprazole - continue #Anemia- H/H 14.2/41.2 on admission, no bleeding - Trend CBC #MAY- CPAP HS - continue Dispo: Admit, med/sx VTE Prophylaxis: SCDs, HOLD XARELTO (also holding ASA) Discussed w/ general surgery & cardiology 01/29 Admission and Anticipated Discharge Date Admission Date: January 29, 2025 Daily Gorman seen and examined this afternoon w/ Dr. Lagunas & nurse at bedside. Sherif denied any abdominal pain at time of encounter. Reports he is feeling much better & is tolerating clear liquids. He reports he is supposed to get a lap choley tomorrow. Physical Exam Constitutional: WD/WN, vitals as above Eyes: PERRL, conjunctivae normal, anicteric sclerae Neck: normal visual inspection Respiratory: normal respiratory effort Psychiatric: A+Ox3, euthymic affect Results & Data Results & Data Vital Signs (Past 12 Hours) Vital Signs Temp Pulse Resp BP Pulse Ox O2 Del Method 01/29/25 15:05 36.6 C 51 L 16 122/83 97 Room Air 01/29/25 14:36 62 15 114/74 97 Room Air 01/29/25 12:00 50 L 16 130/81 97 Room Air 01/29/25 08:00 60 19 145/83 H 96 Room Air 01/29/25 07:10 51 L 16 138/84 97 Room Air 01/29/25 05:35 74 20 140/82 97 Room Air PG Care Time/CCT Total # of Minutes Spent Total Time Spent with Patient: Total time spent is greater than 50% in coordination of care (as documented) at patient's floor/unit and/or counseling patient: Coding Level of Care Code None Diagnoses Acute cholecystitis K81.0 Cholelithiasis K80.20
[2025-01-29] MEDS: EZETIMIBE 10 MG TAB PO SCH (19:52)
[2025-01-29] MEDS: ROSUVASTATIN CALCIUM 20 MG TAB PO SCH (19:52)
[2025-01-30] MEDS: ACETAMINOPHEN 325 MG TAB PO PRN (05:51)
--- NOTE | 2025-01-30 08:01 | Cardiology Consultation ---
Date of Consultation January 29, 2025 Assessment & Plan (1) Preop cardiovascular exam: (2) Coronary disease: (3) Acute cholecystitis: (4) Hyperlipidemia: (5) Chronotropic incompetence: Plan From a cardiac standpoint, he is considered to be optimized for possible surgery. His vascular dose Xarelto is on hold (this usually only requires held x 2-3 days for surgery). As far as I am concerned, he can have surgery tomorrow as per the surgical team. Please not he is not on high dose Xarelto for Afib or thrombus. He should cont with ASA CCB and his nitrates. Will check ECG post op. Thank you for the consult. History of Present Illness Reason for Consultation: preop cardiac clearance-possible GB surgery Attending Physician: Kevin Browne MD History of Present Illness Mr. Eubanks is a very nice 59 y/o with a history of premature CAD hx CABG in 2017 in [facility] with a GARCIA to LAD, KAYDEN to RCA as well as SVG to OM. 2 years later he underwent CBI of the mid LAD 01/08/2020. His las LHC was in 2022 and showed patent GARCIA to LAD, RCA is a large vessel with patent stents but with retrograde flow in the KAYDEN graft which was small, possible atretic. THE SVG to OM is patent. The LAD has a subtotal occlusion, but the distal vessel is perfused via the GARCIA. The Cx shows a 99% subtotal occlusion-there was an attempt to pass a wire through this but was not possible due to the 90 degree bend of the vessel. Madical therapy was recommended. When I saw him last in the fall, he had fatigue as his main complaint. We did a stress echo on him, and he showed chronotropic insufficiency--we were only able to achieve 67% of his max predicted HR at 7:00 exercise. He is on no rate lowering medications. He has been on low dose vascular dose Xarelto 2.5mg bid for recurrent CAD NOT for Afib. He gets occasional angina, usually relieived with SL NTG. When I* saw him in the hospital he reports that his anginal pattern has been stable. He is her for acute adia and it is anticipated that he will need surgery. He is off the Xarelto since Sunday. Allergies Allergy/AdvReac Type Severity Reaction Status Date / Time No Known Allergies Allergy Verified 01/28/25 23:05 Home Medications Medication Instructions Recorded Confirmed Type ascorbate calcium (vitamin C) 500 500 mg PO DAILY 11/28/23 01/28/25 History mg tablet isosorbide mononitrate 60 mg 60 mg PO QAM 11/28/23 01/28/25 History tablet,extended release 24 hr nitroglycerin 0.4 mg sublingual 0.4 mg sublingual Q5M PRN Chest 11/28/23 01/28/25 History tablet Pain omega-3 fatty acids 1,000 mg 1,000 mg PO DAILY 11/28/23 01/28/25 History capsule rivaroxaban 2.5 mg tablet (Xarelto) 2.5 mg PO BID 11/28/23 01/28/25 History rosuvastatin 40 mg tablet 40 mg PO HS 11/28/23 01/28/25 History pantoprazole 40 mg tablet,delayed 40 mg PO DAILY #90 tabs 02/22/24 01/28/25 Rx release amlodipine 2.5 mg tablet 2.5 mg PO HS #90 tabs 05/05/24 01/28/25 Rx aspirin 81 mg chewable tablet 81 mg PO DAILY #90 tabs 05/05/24 01/28/25 Rx ezetimibe 10 mg tablet (Zetia) 10 mg PO HS #90 tabs 05/05/24 01/28/25 Rx cyanocobalamin (vitamin B-12) 1,000 mcg PO DAILY 01/28/25 01/28/25 History 1,000 mcg tablet (Vitamin B-12) Patient History Medical History On anticoagulant therapy xarelto daily Hyperlipidemia HTN (hypertension) GERD (gastroesophageal reflux disease) controlled Prediabetes Palpitations chronic, intermittent Hx of chest pain Coronary disease follows w/ Dr Leann GARZON (shortness of breath on exertion) cardiac related Surgical History Hx of cardiac catheterization last done 04/2023- no stents; 07/2021, 2020 and 2017 total of 5 stents over 3 procedures all done at [facility] History of coronary artery bypass graft x 3 05/2018- [facility]. Social History Smoking Status: Never smoker Second Hand Exposure: No; Do You Dip or Chew Tobacco: No; Hx Alcohol Use: No Hx Substance Use: No Preferred Language: Croatian Communication Ability: Effective Bufferer Required: No Beliefs That Will Affect Care: None Current Living Situation: Spouse Feels Safe at Home: Yes Safety Concerns: Feels Safe At This Time Assistive Devices: None Review of Systems Review of Systems: All systems reviewed & are unremarkable except as noted in HPI & below Physical Exam Physical Exam: AAO x 3 in NAD Respiratory: normal respiratory effort, lungs clear to auscultation Cardiovascular: RRR, no murmur, no edema Results & Data Vital Signs (Past 12 Hours) Vital Signs Temp Pulse Resp BP Pulse Ox O2 Del Method 01/29/25 19:58 36.5 C 52 L 18 145/89 H 97 Room Air ECG Additional Comments: Sinus frank, inferior ST-T wave changes similar to prior from 2022
[2025-01-30 08:18] LABS: Hematocrit (blood only) 40.7 % (42.0-52.0); Hemoglobin 13.5 g/dl (14.0-18.0); Mean Corpuscular Hemoglobin 29.2 pg (25.0-34.0); Mean Corpuscular Volume 87.9 fL (80.0-100.0); Platelet Count 140 K/uL (130-400); RDW Standard Deviation 44.0 fL (36.4-46.3); Red Blood Count 4.63 M/uL (4.70-6.10); White Blood Count 4.87 K/ul (4.8-10.8)
--- NOTE | 2025-01-30 08:27 | Surgery Progress Note ---
Date of Service January 30, 2025 Assessment & Plan (1) Acute cholecystitis: Plan: Cleared by cardiology per their note this AM Added to OR schedule for a Laparoscopic cholecystectomy with Dr Chavez for Sunday AM 01/31/25 ok for clear liquid diet today NPO at MN VSS, WBC wnl, continue IV abx As above. Starting to feel better from an abdominal standpoint. Cardiology okay with proceeding with surgery. Discussed risks as well as options (bleeding, infection, injury to a bile duct or other organ, DVT, PE, WV, CVA etc.) Questions answered. Will proceed tomorrow with laparoscopic cholecystectomy. Admission and Anticipated Discharge Date Admission Date: January 29, 2025 Subjective Pt denies n/v, abd pain, fever, chills, cp, sob Xarelto being held Saw his Managing Supervisor yesterday evening Review of Systems Constitutional: no fever and no chills Respiratory: no dyspnea Cardiovascular: no chest pain Gastrointestinal: no abdominal pain, no nausea and no vomiting Musculoskeletal: no muscle weakness Psychiatric: no confusion Physical Exam Constitutional: cooperative and comfortable; no acute distress Respiratory: normal respiratory effort and able to speak in complete sentences; no respiratory distress Gastrointestinal (Abdomen): Inspection/Auscultation: abdomen normal to inspection; abdomen not distended Percussion/Palpation: + abdomen tender (mildly TTP RUQ) and abdomen soft Psychiatric: A+Ox3, euthymic affect Results & Data Vital Signs (Past 12 Hours) Vital Signs Temp Pulse Resp BP Pulse Ox O2 Del Method 01/30/25 07:47 97.7 F 49 L 16 130/74 97 Room Air Results CBC w Diff Results: RBC 4.63 M/uL (4.70-6.10) L 01/30/25 WBC 4.87 K/ul (4.8-10.8) 01/30/25 Hgb 13.5 g/dl (14.0-18.0) L 01/30/25 Hct 40.7 % (42.0-52.0) L 01/30/25 MCV 87.9 fL (80.0-100.0) 01/30/25 MCH 29.2 pg (25.0-34.0) 01/30/25 MCHC 33.2 g/dL (32.0-36.0) 01/30/25 RDW Standard Deviation 44.0 fL (36.4-46.3) 01/30/25 RDW Coefficient of Variation 13.7 % (11.5-14.5) 01/30/25 Plt Count 140 K/uL (130-400) 01/30/25 MPV 10.7 fL (9.4-12.4) 01/30/25 Neutrophils (%) (Auto) 76.4 % 01/28/25 Lymphocytes (%) (Auto) 12.9 % 01/28/25 Monocytes # (Auto) 0.85 K/uL (0.11-0.59) H 01/28/25 Eosinophils # (Auto) 0.09 K/uL (0.00-0.50) 01/28/25 Immature Granulocyte % (Auto) 0.2 % 01/28/25 Neutrophils # (Auto) 6.95 K/uL (1.40-6.50) H 01/28/25 Lymphocytes # (Auto) 1.17 K/uL (1.20-3.40) L 01/28/25 Monocytes # (Auto) 0.85 K/uL (0.11-0.59) H 01/28/25 Eosinophils # (Auto) 0.09 K/uL (0.00-0.50) 01/28/25 Basophils # (Auto) 0.02 K/uL (0.00-0.20) 01/28/25 Immature Granulocyte # (Auto) 0.02 K/uL (0.01-0.20) 5 PG Care Time/CCT Total # of Minutes Spent Total Time Spent with Patient: Total time spent is greater than 50% in coordination of care (as documented) at patient's floor/unit and/or counseling patient: Coding Level of Care Code 06658 SUB INP/OBS CARE 08/16MIN Diagnoses Acute cholecystitis K81.0
[2025-01-30 08:33] LABS: Alanine Aminotransferase 19.0 U/L (7-52); Albumin Globulin Ratio 1.4 (0.9-2); Alkaline Phosphatase 42.0 U/L (34-104); Anion Gap 5.0 (3-11); Bilirubin,Total 0.9 mg/dl (0.2-1.0); Blood Urea Nitrogen 9.0 mg/dl (6-23); Calcium 8.7 mg/dl (8.6-10.3); Carbon Dioxide 27.0 mmol/L (21-32); Chloride 107.0 mmol/L (98-107); Creatinine Clr Calc Pharmacy 128.5 ml/min; Globulin 2.7 gm/dl (2.5-4.0); Glucose 100.0 mg/dl (70-99(Fasting)); Potassium 4.0 mmol/L (3.5-5.1); Sodium 139.0 mmol/L (136-145); Total Protein 6.6 gm/dl (6.0-8.3)
--- NOTE | 2025-01-30 08:49 | Electrocardiogram Report ---
Test Reason : Blood Pressure : */* mmHG Vent. Rate : 53 BPM Atrial Rate : 53 BPM P-R Int : 204 ms QRS Dur : 98 ms QT Int : 438 ms P-R-T Axes : 31 94 -41 degrees QTcB Int : 410 ms Sinus bradycardia Rightward axis T wave abnormality, consider inferior ischemia Abnormal ECG No previous ECGs available Confirmed by Simeon Noriega ([id number]) on 01/30/2025 8:48:45 AM Referred By: REFERRED SELF Confirmed By: Simeon Noriega
--- NOTE | 2025-01-30 15:46 | Hospitalist Progress Note ---
Date of Service January 30, 2025 Assessment & Plan (1) Acute cholecystitis: (2) Cholelithiasis: Plan 59-year-old male PMHx anemia, A-fib on rivaroxaban, GERD, MAY, prediabetes, CAD s/p CABG x 3 (2017) and stent who presents for nausea and feelings of being fever starting day of arrival as well as abdominal pain. #Acute cholecystitis/Cholelithiasis Presenting with abdominal pain, nausea, and feelings of fever starting day of arrival. CBC w/ no leukocytosis, hgb stable. CMP w/ stable LFTs. Lipase 22 CTAP: distended GB w/ cholelithiasis RUQ US: distended GB containing sludge, neck stone, mild pericholecystic free fluids w/ + greer sign (acute choley); hepatomegaly Continue IVF & IV Zosyn Zofran prn for N/V; Diluadid prn for pain. General surgery consulted --> Lap choley planned for 01/31. NPO after midnight. #A-fib/CAD s/p CABG (2018) x 3 and stents/HLD Cardiology consulted for clearance --> optimized for surgery from cardiac standpoint. amlodipine, Imdur, Xarelto, ezetimibe, rosuvastatin - continue all EXCEPT Xarel to #GERD- Pantoprazole - continue #MAY- CPAP HS - continue Dispo: Admit, med/sx VTE Prophylaxis: SCDs, HOLD XARELTO (also holding ASA) Admission and Anticipated Discharge Date Admission Date: January 29, 2025 Daily Gorman was seen and examined this morning. He reports he is feeling fine today. Denies any abdominal pain & is tolerating a liquid diet. He is to get a lap choley tomorrow morning. Physical Exam Constitutional: WD/WN, vitals as above Eyes: PERRL, conjunctivae normal, anicteric sclerae Neck: normal visual inspection Respiratory: normal respiratory effort Neurologic: PERRL, EOMI, accommodation nl, no face palsy, no dysarthria Psychiatric: A+Ox3, euthymic affect Results & Data Results & Data Vital Signs (Past 12 Hours) Vital Signs Temp Pulse Resp BP Pulse Ox O2 Del Method 01/30/25 14:25 36.6 C 48 L 16 113/65 95 Room Air 01/30/25 07:47 36.5 C 49 L 16 130/74 97 Room Air PG Care Time/CCT Total # of Minutes Spent Total Time Spent with Patient: Total time spent is greater than 50% in coordination of care (as documented) at patient's floor/unit and/or counseling patient: Coding Level of Care Code 74684 SUB INP/OBS CARE 2/35MIN Diagnoses Acute cholecystitis K81.0 Cholelithiasis K80.20
[2025-01-31 06:29] LABS: Hematocrit (blood only) 40.2 % (42.0-52.0); Hemoglobin 13.2 g/dl (14.0-18.0); Mean Corpuscular Hemoglobin 29.0 pg (25.0-34.0); Mean Corpuscular Volume 88.4 fL (80.0-100.0); Platelet Count 131 K/uL (130-400); RDW Standard Deviation 43.5 fL (36.4-46.3); Red Blood Count 4.55 M/uL (4.70-6.10); White Blood Count 5.48 K/ul (4.8-10.8)
[2025-01-31 06:42] LABS: Alanine Aminotransferase 16.0 U/L (7-52); Albumin Globulin Ratio 1.5 (0.9-2); Alkaline Phosphatase 40.0 U/L (34-104); Anion Gap 6.0 (3-11); Bilirubin,Total 0.9 mg/dl (0.2-1.0); Blood Urea Nitrogen 6.0 mg/dl (6-23); Calcium 8.7 mg/dl (8.6-10.3); Carbon Dioxide 27.0 mmol/L (21-32); Chloride 107.0 mmol/L (98-107); Creatinine Clr Calc Pharmacy 126.8 ml/min; Globulin 2.6 gm/dl (2.5-4.0); Glucose 89.0 mg/dl (70-99(Fasting)); Potassium 3.7 mmol/L (3.5-5.1); Sodium 140.0 mmol/L (136-145); Total Protein 6.5 gm/dl (6.0-8.3)
[2025-01-31] MEDS ORDERED: MIDAZOLAM HCL 1 MG/ML 2ML VIAL ONE (06:49)
[2025-01-31] MEDS ORDERED: ONDANSETRON INJ 2 MG/ML 2 ML VIAL ONE (06:49)
[2025-01-31] MEDS ORDERED: PROPOFOL IV EMULSION 10 MG/ML 20 ML VIAL IV ONE (06:49)
[2025-01-31] MEDS ORDERED: LIDOCAINE 2% 2 ML VIAL/AMP(20MG/ML) INFIL ONE ×7 (06:49→07:15)
[2025-01-31] MEDS ORDERED: DEXAMETHASONE SOD INJ 4 MG/ML VIAL ONE (06:49)
[2025-01-31] MEDS ORDERED: ROCURONIUM BROMIDE 10 MG/ML 5 ML VIAL IV ONE (06:50)
--- NOTE | 2025-01-31 07:08 | History & Physical Bridge Note ---
Date of Service January 31, 2025 History & Physical Bridge Note I have examined the patient, reviewed the History & Physical and in the interval since the performance of the History & Physical I have noted the following changes of clinical significance: no changes noted
[2025-01-31] MEDS ORDERED: ACETAMINOPHEN 1000 MG/100 ML IV IV ONE (07:16)
--- NOTE | 2025-01-31 07:36 | Anesthesiology Consultation ---
Date of Service January 31, 2025 Assessment & Plan Chart Review Chart Review: Acceptable Risk for Surgery and Patient NOT seen in Pre Admission Testing Consults Requested none ASA ASA4 Proposed Anesthesia Anesthesia Type: General Risk / Benefits Reviewed With: PT / POA / Parent / Guardian, Accepts Plan and Informed Consent Obtained History Surgery Operation Date: 01/31/25 07:30 Proposed Procedures p Laparoscopic Cholecystectomy - Puneet Chavez, DO Height/Weight Height: 6 ft 1 in Weight: 99.7 kg Allergies Allergy/AdvReac Type Severity Reaction Status Date / Time No Known Allergies Allergy Verified 01/28/25 23:05 Medications Home Medications Medication Instructions Recorded Confirmed Last Taken ascorbate calcium (vitamin C) 500 500 mg PO DAILY 11/28/23 01/28/25 01/28/25 mg tablet isosorbide mononitrate 60 mg 60 mg PO QAM 11/28/23 01/28/25 01/28/25 tablet,extended release 24 hr nitroglycerin 0.4 mg sublingual 0.4 mg sublingual Q5M PRN Chest 11/28/23 01/28/25 Unknown tablet Pain omega-3 fatty acids 1,000 mg 1,000 mg PO DAILY 11/28/23 01/28/25 01/28/25 capsule rivaroxaban 2.5 mg tablet (Xarelto) 2.5 mg PO BID 11/28/23 01/28/25 01/28/25 08:00 rosuvastatin 40 mg tablet 40 mg PO HS 11/28/23 01/28/25 01/27/25 pantoprazole 40 mg tablet,delayed 40 mg PO DAILY #90 tabs 02/22/24 01/28/25 01/28/25 release amlodipine 2.5 mg tablet 2.5 mg PO HS #90 tabs 05/05/24 01/28/25 01/27/25 aspirin 81 mg chewable tablet 81 mg PO DAILY #90 tabs 05/05/24 01/28/25 01/28/25 ezetimibe 10 mg tablet (Zetia) 10 mg PO HS #90 tabs 05/05/24 01/28/25 01/27/25 cyanocobalamin (vitamin B-12) 1,000 mcg PO DAILY 01/28/25 01/28/25 01/28/25 1,000 mcg tablet (Vitamin B-12) Active Medications Generic Name Dose Route Start Last Admin Trade Name Freq PRN Reason Stop Dose Admin Acetaminophen 650 mg 01/29/25 04:43 01/30/25 05:51 Acetaminophen 325 Mg Tab PO 02/28/25 04:42 650 mg Q4H PRN Administration pain/fever Amlodipine Besylate 2.5 mg 01/29/25 21:00 01/30/25 20:08 Amlodipine Besylate 5 Mg Tab PO 02/28/25 20:59 2.5 mg HS VILMA Administration Ezetimibe 10 mg 01/29/25 21:00 01/30/25 20:07 Ezetimibe 10 Mg Tab PO 02/28/25 20:59 10 mg HS VILMA Administration Lactated Ringer's 1,000 mls @ 100 mls/hr 01/29/25 02:30 01/31/25 04:15 Lr IV 02/01/25 02:29 100 mls/hr .Q10H VILMA Administration Piperacillin Sod/Tazobactam Sod 4.5 gm in 100 mls @ 25 mls/hr 01/29/25 06:00 01/31/25 05:56 Zosyn IV 02/08/25 05:59 25 mls/hr Q8H VILMA Administration Protocol Isosorbide Mononitrate 60 mg 01/29/25 09:00 01/30/25 08:31 Isosorbide Emanuel Extended Rel 60 Mg Tabcr PO 02/28/25 08:59 60 mg QAM VILMA Administration Pantoprazole Sodium 40 mg 01/29/25 09:00 01/30/25 08:31 Pantoprazole 40 Mg Tab PO 02/28/25 08:59 40 mg DAILY VILMA Administration Rosuvastatin Calcium 40 mg 01/29/25 21:00 01/30/25 20:07 Rosuvastatin Calcium 20 Mg Tab PO 02/28/25 20:59 40 mg HS VILMA Administration NPO Date Last Intake of Fluids: 01/30/25 Time Last Intake of Fluids: 22:00 Date Last Intake of Solids: 01/29/25 Time Last Intake of Solids: 18:00 Past Medical History Medical History On anticoagulant therapy xarelto daily Hyperlipidemia HTN (hypertension) GERD (gastroesophageal reflux disease) controlled Prediabetes Palpitations chronic, intermittent Hx of chest pain Coronary disease follows w/ Dr Leann GARZON (shortness of breath on exertion) cardiac related ASCVD Ao NIDDM MAY Obese Exercise / Class Metabolic Activity III < 4 Walking/Shop/Light housework Past Surgical History Surgical History Hx of cardiac catheterization last done 04/2023- no stents; 07/2021, 2020 and 2017 total of 5 stents over 3 procedures all done at [facility] History of coronary artery bypass graft x 3 05/2018- [facility]. Past Anesthesia History No Hx of Anesthesia Complications and No Family Hx of Anesthesia Complications History of PONV No Hx of PONV and No Hx of Motion Sickness Social History Smoking Status: Never smoker Do You Dip or Chew Tobacco: No Hx Alcohol Use: No Hx Substance Use: No substance use type: does not use Physical Exam Vital Signs Last Vital Signs Temp 36.8 C 01/30/25 20:04 Pulse 55 L 01/30/25 20:04 Resp 16 01/30/25 14:25 BP 128/73 01/30/25 20:04 Pulse Ox 99 01/30/25 20:04 O2 Del Method Room Air 01/30/25 20:04 Constitutional + obese; no acute distress ENMT Mouth: + dentition abnormality, + dental caries, + edentulous, + poor dentition and + loose teeth Thyromental Distance: > or= 3.5 Finger Breadths Mallampati Class: II Neck normal visual inspection, trachea midline and + facial hair; neck extension not limited Respiratory normal respiratory effort Auscultation: + diminished lung sounds Cardiovascular Rate/Rhythm: regular rate and regular rhythm Heart Sounds: no murmur Vessels: no carotid bruit Musculoskeletal Spine: normal cervical ROM and no pain with cervical ROM Extremities: extremities normal to inspection; full ROM of extremities Neurologic moves all extremities Motor/Sensory: no sensory deficit Psychiatric Orientation: alert and oriented x 3 Testing Laboratory Results 01/31/25 05:58 01/31/25 05:58 Urine Color Yellow 01/28/25 21:47 Urine Appearance Clear (Clear) 01/28/25 21:47 Urine pH 7.5 (4.5-7.5) 01/28/25 21:47 Ur Specific Welches 1.022 (1.000-1.030) 01/28/25 21:47 Urine Protein Negative (Negative) 01/28/25 21:47 Urine Glucose (UA) Negative (Negative) 01/28/25 21:47 Urine Ketones Negative (Negative) 01/28/25 21:47 Urine Nitrite Negative (Negative) 01/28/25 21:47 Ur Leukocyte Esterase Negative (Negative) 01/28/25 21:47 Electrocardiogram Date: 01/29/25 Findings: + SB @ (@ 53;RAD;T wave abnl) Echocardiogram Date: 12/19/23 EF: 55% LV Function: normal RWMA: + none Other Findings: + LVH (mild) and + diastolic dysfunction (Grade 2) Valvular Disease: + AI (mild AR)
[2025-01-31] MEDS: BUPIVACAINE/EPINEPHRINE 0.5% MPF 1:200,000 30 ML VIAL ONE (08:12)
[2025-01-31] MEDS ORDERED: ePHEDrine sulfate 50 MG/5 ML SYR ONE (08:16)
[2025-01-31] MEDS ORDERED: SUGAMMADEX SODIUM 200 MG/2 ML VIAL IV ONE (08:16)
--- NOTE | 2025-01-31 08:44 | Operative Report ---
PG Post Operative Report Pre & Post Diagnosis Operation Date: 01/31/25 07:30 Pre-Op Diagnosis: cholecystitis, cholelithiasis Post-Op Diagnosis: cholecystitis, cholelithiasis I identified the patient and participated in the time-out.: Yes Procedure Operation Date: 01/31/25 07:30 Actual Procedures p Laparoscopic Cholecystectomy(Not Applicable) - Puneet Chavez DO Surgeon Puneet Chavez DO Sr. Vendor Management Associate george Haynes Estimated Blood Loss 5 Findings Consistent with Post-Op Diagnosis Specimens gallbladder Description of Procedure After informed consent was obtained the patient was taken to the operating room and placed in the supine position. After successful intubation the abdomen was sterilely prepped and draped in usual fashion. A periumbilical incision was made with an 11 blade scalpel and carried down through the soft tissue using electrocautery. The anterior rectus fascia was opened using electrocautery and 2 #0 Vicryl stay sutures were placed. The peritoneum was elevated with hemostats and incised under direct vision using Metzenbaum scissors. A finger sweep was performed and a 12 mm Xie trocar was placed. The abdomen was insufflated to 18 mmHg. The laparoscope was inserted and the abdomen was examined in 360. No gross abnormalities were identified. A subxiphoid 5 mm port and 2 right upper quadrant 5 mm ports were placed under direct vision. The patient was placed in a reverse Trendelenburg position and slightly airplaned to the left. The gallbladder was grasped and elevated superiorly and laterally. A [place] dissector was used to take down adhesions around the neck of the gallbladder. The cystic duct was identified and skeletonized. It was clipped twice proximally and once distally and transected using a laparoscopic scissor. In similar fashion the cystic artery was identified and skeletonized clipped and divided. The gallbladder was removed from the gallbladder fossa with electrocautery. It was placed into an Endo Catch bag. Thorough irrigation was performed. At the end of the procedure there was adequate hemostasis and no evidence of any bile leaks. A final look around the abdomen showed no other abnormalities. The gallbladder and trochars were all removed and the abdomen was desufflated. The fascia of the camera port was closed using 0 Vicryl in a [id number] fashion. All the wounds were irrigated and closed using 4-0 Monocryl. Marcaine was injected around them for postoperative analgesia and skin glue used as a dressing. The patient was awaken extubated and transferred to recovery in stable condition. My physician's customer marketing assistant was present throughout the entire case... helped with prepping the patient. With exposure for trocar placement, as well as retracted the gallbladder throughout the case and also assisted with wound closure and dressing placement. I attest to the content of the Intraoperative Record and any orders documented therein. Any exceptions are noted below.
[2025-01-31] MEDS ORDERED: PROMETHAZINE HCL 6.25 MG in SODIUM CHLORIDE 0.9% 50 ML IV PRN (09:04)
[2025-01-31] MEDS ORDERED: FLUMAZENIL 0.1 MG/1 ML 10 ML VIAL IV PRN (09:04)
[2025-01-31] MEDS ORDERED: NALOXONE HCL 0.4 MG/1 ML VIAL/CARP IV PRN (09:04)
[2025-01-31] MEDS ORDERED: ATROPINE SULFATE 0.1 MG/ML 10ML SYR IV PRN (09:04)
[2025-01-31] MEDS ORDERED: HYDROmorphone INJ 1 MG/ML SYRINGE IV PRN (09:04)
[2025-01-31] MEDS ORDERED: ONDANSETRON INJ 2 MG/ML 2 ML VIAL IV PRN (09:04)
--- NOTE | 2025-01-31 09:41 | Anesthesiology Progress Note ---
Date of Service January 31, 2025 Anesthesia Post Procedure Vital Signs Vital Signs: Temp Pulse Pulse Resp BP Pulse Ox O2 Del Method 01/31/25 09:15 56 L 14 131/68 95 Room Air 01/31/25 09:05 36.4 C L 70 20 128/67 97 Room Air 01/31/25 08:55 64 15 121/62 100 Oxymask 01/31/25 08:45 36.1 C L 60 17 116/64 95 Oxymask 01/30/25 20:04 36.8 C 55 L 128/73 99 Room Air 01/30/25 14:25 36.6 C 48 L 16 113/65 95 Room Air O2 Flow Rate 01/31/25 09:15 01/31/25 09:05 01/31/25 08:55 10 01/31/25 08:45 10 01/30/25 20:04 01/30/25 14:25 Pain Intensity Abdomen: Pain Intensity: 6 Transfer of Care Handoff Completed per policy Notes Mental Status: alert / awake / arousable Patient Amnestic to Procedure: Yes Nausea / Vomiting: adequately controlled Pain: adequately controlled Airway Patency, RR, SpO2: stable & adequate BP & HR: stable & adequate Hydration State: stable & adequate Anesthetic Complications: no major complications apparent
[2025-01-31 10:01] VITALS: RESP 16
--- NOTE | 2025-01-31 12:33 | Cardiology Progress Note ---
Date of Service January 31, 2025 Assessment & Plan (1) Coronary disease: (2) Acute cholecystitis: Plan: s/p lap adia (3) Hyperlipidemia: (4) Chronotropic incompetence: Plan Overall he is doing well resume isosorbide and CCB. Hopefully can resume Xarelto tomorrow. Cont ASA. ECG post op unremarkable. Keep in mind he gets occasional angina regularly and will follow for this. Admission and Anticipated Discharge Date Admission Date: January 29, 2025 Subjective Patient seen s/p adia. Still tired. Relayed some angina at 3 am-VSS and it resolved spontaneously. no new c/o Review of Systems Review of Systems: All systems reviewed & are unremarkable except as noted in HPI & below Physical Exam Physical Exam: AAO x 3 in NAD Respiratory: normal respiratory effort, lungs clear to auscultation Cardiovascular: RRR, no murmur, no edema Results & Data Vital Signs (Past 12 Hours) Vital Signs Temp Pulse Pulse Resp BP Pulse Ox O2 Del Method 01/31/25 11:31 36.6 C 62 16 132/70 96 Room Air 01/31/25 10:26 57 L 16 141/74 H 96 Room Air 01/31/25 10:00 59 L 16 140/77 97 Room Air 01/31/25 09:30 36.4 C L 55 L 16 143/76 H 97 Room Air 01/31/25 09:15 56 L 14 131/68 95 Room Air 01/31/25 09:05 36.4 C L 70 20 128/67 97 Room Air 01/31/25 08:55 64 15 121/62 100 Oxymask 01/31/25 08:45 36.1 C L 60 17 116/64 95 Oxymask O2 Flow Rate 01/31/25 11:31 01/31/25 10:26 01/31/25 10:00 01/31/25 09:30 01/31/25 09:15 01/31/25 09:05 01/31/25 08:55 10 01/31/25 08:45 10 Laboratory Results Abnormal lab results 01/31/25 Range/Units 05:58 RBC 4.55 L (4.70-6.10) M/uL Hgb 13.2 L (14.0-18.0) g/dl Hct 40.2 L (42.0-52.0) % BUN/Creatinine Ratio 7.9 L (10-20) Medications Administered Current Inpatient Medications Acetaminophen (Acetaminophen 325 Mg Tab) 650 mg PO Q4H PRN PRN Reason: pain/fever Stop: 02/28/25 04:42 Last Admin: 01/30/25 05:51 Dose: 650 mg Amlodipine Besylate (Amlodipine Besylate 5 Mg Tab) 2.5 mg PO HS [facility]IL[facility] Stop: 02/28/25 20:59 Last Admin: 01/30/25 20:08 Dose: 2.5 mg Atropine Sulfate (Atropine Sulfate 0.1 Mg/Ml 10ml Syr) 0.5 mg IV Q1M PRN PRN Reason: PACU Use-HR<40 &/or Bradycardi Stop: 01/31/25 17:04 Ezetimibe (Ezetimibe 10 Mg Tab) 10 mg PO HS [facility] Stop: 02/28/25 20:59 Last Admin: 01/30/25 20:07 Dose: 10 mg Ephedrine Sulfate (Ephedrine Sulfate 50 Mg/Ml Amp) 5 mg IV Q5M PRN PRN Reason: PACU Use Only-SBP<90 mmHg Stop: 01/31/25 17:04 Fentanyl Citrate (Fentanyl Citrate Pf 100 Mcg/2 Ml Vial) 25 mcg IV Q5M PRN PRN Reason: PACU Use Only-Pain Stop: 01/31/25 17:04 Flumazenil (Flumazenil 0.1 Mg/1 Ml 10 Ml Vial) 0.2 mg IV Q2M PRN PRN Reason: PACU Use Only-Benzo Reversal Stop: 01/31/25 17:04 Hydromorphone HCl (Hydromorphone Inj 0.5 Mg/0.5 Ml Syr) 0.25 mg IV Q3H PRN PRN Reason: Pain (1,2,3,4,5) & Pre PT Stop: 02/12/25 02:27 Hydromorphone HCl (Hydromorphone Inj 0.5 Mg/0.5 Ml Syr) 0.5 mg IV Q3H PRN PRN Reason: Pain (6,7,8,9,10) Stop: 02/12/25 02:27 Hydromorphone HCl (Hydromorphone Inj 1 Mg/Ml Syringe) 0.25 mg IV Q5M PRN PRN Reason: PACU Use Only-Pain Stop: 01/31/25 17:04 Lactated Ringer's (Lr) 1,000 mls @ 100 mls/hr IV .Q10H [facility] Stop: 02/01/25 02:29 Last Admin: 01/31/25 04:15 Dose: 100 mls/hr Piperacillin Sod/Tazobactam Sod (Zosyn) 4.5 gm in 100 mls @ 25 mls/hr IV Q8H [facility]; Protocol Stop: 02/08/25 05:59 Last Infusion: 01/31/25 10:49 Dose: Infused Promethazine HCl 6.25 mg/ (Sodium Chloride) 50.25 mls @ 204 mls/hr IV ONCE PRN PRN Reason: PACU Use Only-Nausea/Vomiting Stop: 01/31/25 17:04 Isosorbide Mononitrate (Isosorbide [place] Extended Rel 60 Mg Tabcr) 60 mg PO QAM [facility] Stop: 02/28/25 08:59 Last Admin: 01/31/25 10:15 Dose: 60 mg Melatonin (Melatonin 3 Mg Tab) 3 mg PO HS PRN PRN Reason: Insomnia Stop: 02/28/25 04:42 Naloxone HCl (Naloxone Hcl 0.4 Mg/1 Ml Vial/Carp) 0.2 mg IV Q2M PRN PRN Reason: PACU Use Only-Opiate Reversal Stop: 01/31/25 17:04 Nitroglycerin (Nitroglycerin Sl 0.4 Mg/Tab Tab) 0.4 mg SL Q5M PRN PRN Reason: Chest Pain Stop: 02/28/25 04:42 Ondansetron HCl (Ondansetron Inj 2 Mg/Ml 2 Ml Vial) 4 mg IV Q6H PRN PRN Reason: Nausea And Vomiting Stop: 02/28/25 02:27 Ondansetron HCl (Ondansetron Inj 2 Mg/Ml 2 Ml Vial) 4 mg IV Q6H PRN PRN Reason: Nausea Stop: 02/28/25 04:42 Ondansetron HCl (Ondansetron Inj 2 Mg/Ml 2 Ml Vial) 4 mg IV ONCE PRN PRN Reason: PACU Use Only-Nausea/Vomiting Stop: 01/31/25 17:04 Oxycodone HCl (Oxycodone Hcl Ir 5 Mg Tab (Immediate Release)) 5 mg PO Q4H PRN PRN Reason: Moderate Pain (Scale 4, 5, 6) Stop: 02/14/25 10:05 Oxycodone HCl (Oxycodone Hcl Ir 5 Mg Tab (Immediate Release)) 10 mg PO Q4H PRN PRN Reason: Severe Pain (Scale 7, 8, 9,10) Stop: 02/14/25 10:05 Pantoprazole Sodium (Pantoprazole 40 Mg Tab) 40 mg PO DAILY [facility] Stop: 02/28/25 08:59 Last Admin: 01/31/25 10:15 Dose: 40 mg Polyethylene Glycol (Polyethylene (Miralax) 17 Gm Pack) 17 gm PO DAILY PRN PRN Reason: Constipation Stop: 02/28/25 04:42 Rosuvastatin Calcium (Rosuvastatin Calcium 20 Mg Tab) 40 mg PO HS [facility] Stop: 02/28/25 20:59 Last Admin: 01/30/25 20:07 Dose: 40 mg ECG Additional Comments: Repeat ECG post op unchanged
[2025-01-31] MEDS ORDERED: Nursing to Pharmacy Communication SCH (15:30)
--- NOTE | 2025-01-31 16:19 | Discharge Summary ---
Discharge Summary Date of Service January 31, 2025 Principal Dx & Hospital Course #1 = Principal Diagnosis (1) Acute cholecystitis: (2) Cholelithiasis: Plan 59-year-old male PMHx anemia, A-fib on rivaroxaban, GERD, MAY, prediabetes, CAD s/p CABG x 3 (2018) and stent who presents for nausea and feelings of being fever starting day of arrival as well as abdominal pain. #Acute cholecystitis/Cholelithiasis Presenting with abdominal pain, nausea, and feelings of fever starting day of arrival. CBC w/ no leukocytosis, hgb stable. CMP w/ stable LFTs. Lipase 22 CTAP: distended GB w/ cholelithiasis RUQ US: distended GB containing sludge, neck stone, mild pericholecystic free fluids w/ + moore sign (acute choley); hepatomegaly Continue IVF & IV Zosyn Zofran prn for N/V; Tylenol 1st line Oxycodone 2nd line prn for pain upon discharge. General surgery consulted --> s/p lap choley 01/31. Per their recs, may resume Xarelto on 02/02. Follow up w/ Gen surg outpatient. #A-fib/CAD s/p CABG (2018) x 3 and stents/HLD Cardiology consulted for clearance --> optimized for surgery from cardiac standpoint. amlodipine, Imdur, Xarelto, ezetimibe, rosuvastatin - continue all EXCEPT Xar elto #GERD- Pantoprazole - continue #MAY- CPAP HS - continue Discharged home 01/31. Admission HPI Per Admitting Provider 59-year-old male PMHx anemia, A-fib on rivaroxaban, GERD, MAY, prediabetes, CAD s/p CABG x 3 (2018) and stent who presents for nausea and feelings of being fever starting day of arrival as well as abdominal pain. Patient states that the morning STAND IN he woke up and had breakfast. Following eating his meal, he started feel "uncomfortable". He states that this discomfort lasted throughout the day, describing symptoms as gas pains that would come and go in different way to severity but was always present. It was spread across to his entire abdomen but was more so localized to the RUQ. He did have nausea with an episode of vomiting and states that only bile came out. [place] warm and sweaty during episode of vomiting, but no reported fever. At around 1600 he states that the pain became much worse and almost intolerable. At its worst, the pain was an 8 out of 10 on the pain scale. At present the pain is a 2 out of 10 on the pain scale. He has not had this happen before. No fever or chills, no sick contacts, BM normal. Patient does occasionally experience palpitations, none at present. Denies chest pain, SOB, diarrhea/constipation, LUTS, URI symptoms, fever/chills, numbness/tingling, LUTS, weakness, or syncope. His last dose of Xarelto was the morning STAND IN (01/28/2025). ED evaluation reveals CBC without leukocytosis, H&H 14.2/41.2; CMP grossly unremarkable with exception of glucose 115; lactate 1.6; lipase 22; UA negative for infection; CTAP distended gallbladder with cholelithiasis, sigmoid diverticulosis coli, no acute diverticulitis, linear patchy areas of atelectasis/consolidation with a trace L pleural effusion, calcified/noncalcified atherosclerotic disease; gallbladder ultrasound distended GB containing sludge, neck stone, mild pericholecystic free fluid with positive Moore sign (acute cholecystitis), hepatomegaly grade 2 fatty liver;. Provided with Zosyn 4.5 g IV, Zofran 4 mg IV, and fentanyl 50 mcg in ED. Please see Dr. Granados's attestation for adjustments/additions to treatment plan. Discharge Exam Constitutional WD/WN, vitals as above Eyes PERRL, conjunctivae normal, anicteric sclerae Respiratory normal respiratory effort Neurologic PERRL, EOMI, accommodation nl, no face palsy, no dysarthria Psychiatric A+Ox3, euthymic affect Discharge Plan Discharge Items Patient Disposition: Home - Self-Care Reason For Visit: cholecystitis, cholelithiasis Discharge Diagnosis: laparoscopic cholecystectomy Condition on Discharge: Fair Activity: Per Instructions section Lifting: No more than 10 pounds Bathing Comment: you can shower. No soaking in pools/bath for 2 weeks Exercise/Sports: Wait until after follow-up appointment Driving/Machine Use: no driving while taking narcotic pain medication Non-emergency contact: Surgeon Call non-emergency contact if: you have any medication questions, your symptoms worsen, your pain is not controlled, you have a fever, your temperature is above 101.5, your wound has increased redness, your wound has increased drainage and your wound pain has increased Follow-up/Referrals: Puneet Chavez DO [Surgeon] - (call office for follow up in 2 weeks ) Annalisa Herman DO [Primary Care Provider] - Diet: Regular Addtl Attending Provider Instructions: *You can resume your Xarelto on Friday 02/02 SPECIAL CARE INSTRUCTIONS: * Dressing: You have surgical glue called dermabond on your surgical site incisions. You may shower with this on. This will tend to come off within a couple of weeks. Do not pick at it. * You may shower . NO soaking in pools or baths for 2 weeks * No lifting greater than 10lbs. No exercise until cleared by surgeon. Light walking is accepted. * No driving while taking narcotic pain medication * No drinking alcohol while taking narcotic pain medication * May use Ibuprofen/Tylenol over the counter for pain as tolerated. Do not exceed 3grams of Tylenol per 24 hours * Expect some swelling and bruising. * Diet resume your prior Call your doctor if: * Temperature above 101 degrees, nausea/vomiting, fever/chills * Pain not relieved by pain medicine ordered * There is increased drainage or redness from any incision * You have any unanswered questions or concerns [phone]. FOLLOW UP VISIT: If not already scheduled, please call the office for a follow-up visit. Office Pending Studies at Discharge: Yes Studies:: surgical pathology Stand-Alone Forms: My [facility], Smoking Cessation Medications and DC Order Prescriptions: New ondansetron 4 mg tablet,disintegrating 4 mg PO Q6H PRN (Reason: nausea and vomiting) Qty: 30 0RF oxycodone 5 mg tablet 5 mg PO Q6H PRN (Reason: pain) Qty: 10 0RF Continued pantoprazole 40 mg tablet,delayed release (DR/EC) 40 mg PO DAILY Qty: 90 3RF amlodipine 2.5 mg tablet 2.5 mg PO HS Qty: 90 3RF aspirin 81 mg tablet,chewable 81 mg PO DAILY Qty: 90 3RF ezetimibe [Zetia] 10 mg tablet 10 mg PO HS Qty: 90 3RF ascorbate calcium (vitamin C) 500 mg tablet 500 mg PO DAILY isosorbide mononitrate 60 mg tablet extended release 24 hr 60 mg PO QAM nitroglycerin 0.4 mg tablet, sublingual 0.4 mg sublingual Q5M PRN (Reason: Chest Pain) Rx Instructions: do not exceed 3 doses per episode omega-3 fatty acids 1,000 mg capsule 1,000 mg PO DAILY rosuvastatin 40 mg tablet 40 mg PO HS cyanocobalamin (vitamin B-12) [Vitamin B-12] 1,000 mcg Tablet 1,000 mcg PO DAILY Held Xarelto 2.5 mg tablet 2.5 mg PO BID Hold Instructions: Resume on 02/02/25. Resume 02/02 Admission Data Admit Date/Time: 01/29/25 02:27 Attending Provider: Marino Chopra Admit Provider: Maday Granados Primary Care Provider: Annalisa Herman Other Providers: Maday Granados; Rodriguez Penn; Simeon Noriega Hospital Stay Data Consultations 01/29/25 00:57 Consult General Surgery Routine ED Decision to Admit Stat 01/29/25 09:35 Consult Cardiology Routine Procedures Performed Operation Date: 01/31/25 07:30 Actual Procedures p Laparoscopic Cholecystectomy(Not Applicable) - Puneet Chavez, Diagnostic Imagining Performed 01/28/25 21:42 CT Abd and Pelvis [CT abd pelvis IV con only] Stat 01/28/25 22:00 US gallbladder Stat Pending Results Patient Have Any Pending Studies at Discharge: Yes Discharge Instructions Given to Patient (Per Discharging Provider) *You can resume your Xarelto on Friday 02/02 SPECIAL CARE INSTRUCTIONS: * Dressing: You have surgical glue called dermabond on your surgical site incisions. You may shower with this on. This will tend to come off within a couple of weeks. Do not pick at it. * You may shower . NO soaking in pools or baths for 2 weeks * No lifting greater than 10lbs. No exercise until cleared by surgeon. Light walking is accepted. * No driving while taking narcotic pain medication * No drinking alcohol while taking narcotic pain medication * May use Ibuprofen/Tylenol over the counter for pain as tolerated. Do not exceed 3grams of Tylenol per 24 hours * Expect some swelling and bruising. * Diet resume your prior Call your doctor if: * Temperature above 101 degrees, nausea/vomiting, fever/chills * Pain not relieved by pain medicine ordered * There is increased drainage or redness from any incision * You have any unanswered questions or concerns [phone]. FOLLOW UP VISIT: If not already scheduled, please call the office for a follow-up visit. Office Total Time Total Time Spent Total Time Spent (In Minutes): 45 Coding Diagnoses Acute cholecystitis K81.0 Cholelithiasis K80.20
--- NOTE | 2025-01-31 17:56 | Hospitalist Progress Note ---
Date of Service January 31, 2025 Assessment & Plan (1) Acute cholecystitis: (2) Cholelithiasis: Plan 59-year-old male PMHx anemia, A-fib on rivaroxaban, GERD, MAY, prediabetes, CAD s/p CABG x 3 (2017) and stent who presents for nausea and feelings of being fever starting day of arrival as well as abdominal pain. #Acute cholecystitis/Cholelithiasis Presenting with abdominal pain, nausea, and feelings of fever starting day of arrival. CBC w/ no leukocytosis, hgb stable. CMP w/ stable LFTs. Lipase 22 CTAP: distended GB w/ cholelithiasis RUQ US: distended GB containing sludge, neck stone, mild pericholecystic free fluids w/ + greer sign (acute choley); hepatomegaly Continue IV Zosyn Zofran prn for N/V; Diluadid prn for pain. General surgery consulted --> s/p lap choley 01/31 w/ Dr. Chavez Originally going to be discharged however due to shoulder pain he will continue his inpatient stay w/ hopes of being discharged 02/01. #A-fib/CAD s/p CABG (2018) x 3 and stents/HLD Cardiology consulted for clearance --> optimized for surgery from cardiac standpoint. amlodipine, Imdur, Xarelto, ezetimibe, rosuvastatin - continue all EXCEPT Xarelto #GERD- Pantoprazole - continue #MAY- CPAP HS - continue Dispo: Admit, med/sx VTE Prophylaxis: SCDs, HOLD XARELTO (also holding ASA) Admission and Anticipated Discharge Date Admission Date: January 29, 2025 Subjective Patient seen and examined throughout the day. He is experiencing right shoulder pain that is ~ 5-6/10 in nature. Reports no abdominal pain but more so pressure. States he has been passing gas & burping. He tolerated his dinner well. Physical Exam Constitutional: WD/WN, vitals as above Eyes: PERRL, conjunctivae normal, anicteric sclerae Respiratory: normal respiratory effort Neurologic: PERRL, EOMI, accommodation nl, no face palsy, no dysarthria Psychiatric: A+Ox3, euthymic affect Results & Data Results & Data Vital Signs (Past 12 Hours) Vital Signs Temp Pulse Pulse Resp BP Pulse Ox O2 Del Method 01/31/25 15:13 36.6 C 56 L 16 128/65 95 Room Air 01/31/25 12:37 36.6 C 64 16 128/72 96 Room Air 01/31/25 11:31 36.6 C 62 16 132/70 96 Room Air 01/31/25 10:26 57 L 16 141/74 H 96 Room Air 01/31/25 10:00 59 L 16 140/77 97 Room Air 01/31/25 09:30 36.4 C L 55 L 16 143/76 H 97 Room Air 01/31/25 09:15 56 L 14 131/68 95 Room Air 01/31/25 09:05 36.4 C L 70 20 128/67 97 Room Air 01/31/25 08:55 64 15 121/62 100 Oxymask 01/31/25 08:45 36.1 C L 60 17 116/64 95 Oxymask O2 Flow Rate 01/31/25 15:13 01/31/25 12:37 01/31/25 11:31 01/31/25 10:26 01/31/25 10:00 01/31/25 09:30 01/31/25 09:15 01/31/25 09:05 01/31/25 08:55 10 01/31/25 08:45 10 PG Care Time/CCT Total # of Minutes Spent Total Time Spent with Patient: Total time spent is greater than 50% in coordination of care (as documented) at patient's floor/unit and/or counseling patient: Coding Level of Care Code 98423 SUB INP/OBS CARE Diagnoses Acute cholecystitis K81.0 Cholelithiasis K80.20
[2025-02-01 05:07] VITALS: TEMP 97.7
[2025-02-01 06:22] LABS: Hematocrit (blood only) 38.9 % (42.0-52.0); Hemoglobin 13.2 g/dl (14.0-18.0); Immature Granulocytes # (auto) 0.04 K/uL (0.01-0.20); Immature Granulocytes % (auto) 0.4 %; Mean Corpuscular Hemoglobin 29.4 pg (25.0-34.0); Mean Corpuscular Volume 86.6 fL (80.0-100.0); Platelet Count 151 K/uL (130-400); RDW Standard Deviation 41.6 fL (36.4-46.3); Red Blood Count 4.49 M/uL (4.70-6.10); White Blood Count 11.04 K/ul (4.8-10.8)
[2025-02-01 06:42] LABS: Alanine Aminotransferase 23.0 U/L (7-52); Albumin Globulin Ratio 1.6 (0.9-2); Alkaline Phosphatase 42.0 U/L (34-104); Anion Gap 9.0 (3-11); Bilirubin,Total 0.8 mg/dl (0.2-1.0); Blood Urea Nitrogen 10.0 mg/dl (6-23); Calcium 8.7 mg/dl (8.6-10.3); Carbon Dioxide 24.0 mmol/L (21-32); Chloride 105.0 mmol/L (98-107); Creatinine Clr Calc Pharmacy 119.0 ml/min; Globulin 2.6 gm/dl (2.5-4.0); Glucose 118.0 mg/dl (70-99(Fasting)); Potassium 3.7 mmol/L (3.5-5.1); Sodium 138.0 mmol/L (136-145); Total Protein 6.7 gm/dl (6.0-8.3)
--- NOTE | 2025-02-01 06:42 | Surgery Progress Note ---
Date of Service February 01, 2025 Assessment & Plan (1) Acute cholecystitis: Plan: Patient is POD #1 s/p laparoscopic cholecystectomy by Dr. Chavez -Doing well this morning -Tolerating diet , denies N/V, passing gas -If patient does well with breakfast and his pain has improved he is ok for discharge from a surgery standpoint -Did discuss with the patient post-operative instructions. He was also instructed to resume his Xarelto tomorrow morning. He will follow up in our outpatient clinic in 2 weeks for a post-op check up. -Surgery will sign off, please recall with any questions or concerns Admission and Anticipated Discharge Date Admission Date: January 29, 2025 Subjective Patient seen and examined early this morning States last evening he was experiencing shoulder pain/overall discomfort however states he is feeling better this morning Tolerating diet without N/V and passing gas Physical Exam Constitutional: WD/WN, vitals as above Respiratory: normal respiratory effort, lungs clear to auscultation Cardiovascular: Rate/Rhythm: regular rate Gastrointestinal (Abdomen): Abdomen soft, appropriate TTP over surgical sites. Incisions with Dermabond in place, c/d/i without any signs of infection Psychiatric: A+Ox3, euthymic affect Results & Data Vital Signs (Past 12 Hours) Vital Signs Temp Pulse Resp BP Pulse Ox O2 Del Method 02/01/25 05:05 36.5 C 58 L 16 137/75 94 Room Air 02/01/25 01:18 36.4 C L 60 16 132/69 95 Room Air 01/31/25 19:14 36.8 C 63 16 137/74 96 Room Air PG Care Time/CCT Total # of Minutes Spent Total Time Spent with Patient: Total time spent is greater than 50% in coordination of care (as documented) at patient's floor/unit and/or counseling patient: Coding [place] [address] Post Operative Follow-Up Patient Type Established Medical Decision Making Straight Forward Diagnoses Acute cholecystitis K81.0
[2025-02-01 07:17] VITALS: BP 134/77; PULSE 53; O2SAT 97
--- NOTE | 2025-02-01 09:18 | Discharge Summary ---
Discharge Summary Date of Service February 01, 2025 Principal Dx & Hospital Course #1 = Principal Diagnosis (1) Acute cholecystitis: (2) Cholelithiasis: Plan 59-year-old male PMHx anemia, A-fib on rivaroxaban, GERD, MAY, prediabetes, CAD s/p CABG x 3 (2017) and stent who presents for nausea and feelings of being fever starting day of arrival as well as abdominal pain. #Acute cholecystitis/Cholelithiasis Presenting with abdominal pain, nausea, and feelings of fever starting day of arrival. CBC w/ slight bump of WBC following surgery which is to be expected. LFTs remain WNL CTAP: distended GB w/ cholelithiasis RUQ US: distended GB containing sludge, neck stone, mild pericholecystic free fluids w/ + greer sign (acute choley); hepatomegaly s/p IV Zosyn s/p lap choley with Dr. Chvaez 01/31 --> recommend 2 week follow up in outpatient office. Sent home w/ Zofran prn for N/V & Oxycodone prn for pain #A-fib/CAD s/p CABG (2018) x 3 and stents/HLD Cardiology consulted for clearance --> optimized for surgery from cardiac standpoint. amlodipine, Imdur, Xarelto, ezetimibe, rosuvastatin - Xarelto able to be resumed 02/02 as recommended by gen surg. #GERD- Pantoprazole - continue #MAY- CPAP HS - continue Discharged home 02/01 Discharge Exam Constitutional WD/WN, vitals as above Eyes PERRL, conjunctivae normal, anicteric sclerae Neck normal visual inspection Respiratory normal respiratory effort Neurologic PERRL, EOMI, accommodation nl, no face palsy, no dysarthria Psychiatric A+Ox3, euthymic affect Discharge Plan Discharge Items Patient Disposition: Home - Self-Care Reason For Visit: cholecystitis, cholelithiasis Discharge Diagnosis: laparoscopic cholecystectomy Condition on Discharge: Fair Activity: Per Instructions section Lifting: No more than 10 pounds Bathing Comment: Can shower. No soaking in bath tubs, hot tubs, pools, beaches x2 weeks Exercise/Sports: Wait until after follow-up appointment Driving/Machine Use: no driving while taking narcotic pain medication Non-emergency contact: Surgeon Call non-emergency contact if: you have any medication questions, your symptoms worsen, your pain is not controlled, you have a fever, your temperature is above 101.5, your wound has increased redness, your wound has increased drainage and your wound pain has increased Follow-up/Referrals: Puneet Chavez, [Surgeon] - (call office for follow up in 2 weeks ) Annalisa Herman DO [Primary Care Provider] - Diet: Regular Addtl Attending Provider Instructions: *You can resume your Xarelto on Friday 02/02 SPECIAL CARE INSTRUCTIONS: * Dressing: You have surgical glue called dermabond on your surgical site incisions. You may shower with this on. This will tend to come off within a couple of weeks. Do not pick at it. * You may shower . NO soaking in bath tubs, hot tubs, beaches, or pools for 2 weeks * No lifting greater than 10lbs. No exercise until cleared by surgeon. Light walking is accepted. * No driving while taking narcotic pain medication * No drinking alcohol while taking narcotic pain medication * May use Ibuprofen/Tylenol over the counter for pain as tolerated. Do not exceed 3grams of Tylenol per 24 hours * Expect some swelling and bruising. * Diet resume your prior Call your doctor if: * Temperature above 101 degrees, nausea/vomiting, fever/chills * Pain not relieved by pain medicine ordered * There is increased drainage or redness from any incision * You have any unanswered questions or concerns [phone]. FOLLOW UP VISIT: If not already scheduled, please call the office for a follow-up visit. Office Pending Studies at Discharge: Yes Studies:: surgical pathology Stand-Alone Forms: [facility] Interactive, Work/School Release, Smoking Cessation Medications and DC Order Prescriptions: New ondansetron 4 mg tablet,disintegrating 4 mg PO Q6H PRN (Reason: nausea and vomiting) Qty: 30 0RF oxycodone 5 mg tablet 5 mg PO Q6H PRN (Reason: pain) Qty: 10 0RF Continued pantoprazole 40 mg tablet,delayed release (DR/EC) 40 mg PO DAILY Qty: 90 3RF amlodipine 2.5 mg tablet 2.5 mg PO HS Qty: 90 3RF aspirin 81 mg tablet,chewable 81 mg PO DAILY Qty: 90 3RF ezetimibe [Zetia] 10 mg tablet 10 mg PO HS Qty: 90 3RF ascorbate calcium (vitamin C) 500 mg tablet 500 mg PO DAILY isosorbide mononitrate 60 mg tablet extended release 24 hr 60 mg PO QAM nitroglycerin 0.4 mg tablet, sublingual 0.4 mg sublingual Q5M PRN (Reason: Chest Pain) Rx Instructions: do not exceed 3 doses per episode omega-3 fatty acids 1,000 mg capsule 1,000 mg PO DAILY rosuvastatin 40 mg tablet 40 mg PO HS cyanocobalamin (vitamin B-12) [Vitamin B-12] 1,000 mcg Tablet 1,000 mcg PO DAILY Held Xarelto 2.5 mg tablet 2.5 mg PO BID Hold Instructions: Resume on 02/02/25. Resume 02/02 Discharge Orders: Discharge Order (Routine); Ordered 02/01/25 Ordered By: Sinai Kent Admission Data Admit Date/Time: 01/29/25 02:27 Attending Provider: Marino Chopra Admit Provider: Maday Granados Primary Care Provider: Annalisa Herman Other Providers: Maday Granados; Rodriguez Penn; Simeon Noriega Hospital Stay Data Consultations 01/29/25 00:57 Consult General Surgery Routine ED Decision to Admit Stat 01/29/25 09:35 Consult Cardiology Routine Procedures Performed Operation Date: 01/31/25 07:30 Actual Procedures p Laparoscopic Cholecystectomy(Not Applicable) - Puneet Chavez, Diagnostic Imagining Performed 01/28/25 21:42 CT Abd and Pelvis [CT abd pelvis IV con only] Stat 01/28/25 22:00 US gallbladder Stat Pending Results Patient Have Any Pending Studies at Discharge: Yes Discharge Instructions Given to Patient (Per Discharging Provider) *You can resume your Xarelto on Friday 02/02 SPECIAL CARE INSTRUCTIONS: * Dressing: You have surgical glue called dermabond on your surgical site incisions. You may shower with this on. This will tend to come off within a couple of weeks. Do not pick at it. * You may shower . NO soaking in bath tubs, hot tubs, beaches, or pools for 2 weeks * No lifting greater than 10lbs. No exercise until cleared by surgeon. Light walking is accepted. * No driving while taking narcotic pain medication * No drinking alcohol while taking narcotic pain medication * May use Ibuprofen/Tylenol over the counter for pain as tolerated. Do not exceed 3grams of Tylenol per 24 hours * Expect some swelling and bruising. * Diet resume your prior Call your doctor if: * Temperature above 101 degrees, nausea/vomiting, fever/chills * Pain not relieved by pain medicine ordered * There is increased drainage or redness from any incision * You have any unanswered questions or concerns [phone]. FOLLOW UP VISIT: If not already scheduled, please call the office for a follow-up visit. Office Total Time Total Time Spent Total Time Spent (In Minutes): 50 Total Time Includes: Examination of the Patient, Discharge Planning, Medication Reconciliation and Communication With Other Providers Coding Level of Care Code 67944 INP/OBS DISCH >30 MIN Diagnoses Acute cholecystitis K81.0 Cholelithiasis K80.20
--- NOTE | 2025-02-02 10:18 | Electrocardiogram Report ---
Test Reason : Blood Pressure : */* mmHG Vent. Rate : 59 BPM Atrial Rate : 59 BPM P-R Int : 192 ms QRS Dur : 108 ms QT Int : 446 ms P-R-T Axes : 40 94 -23 degrees QTcB Int : 441 ms Sinus bradycardia Rightward axis T wave abnormality, consider inferior ischemia Abnormal ECG When compared with ECG of 29-Jan-2025 15:56, Nonspecific T wave abnormality no longer evident in Anterior leads Confirmed by Andrew Yates ([id number]) on 02/02/2025 10:17:36 AM Referred By: REFERRED SELF Confirmed By: Andrew Yates
== END 2025-02-01 11:56 | disposition home or self-care (01) | DRG 418 ==
LOC: ED 21:31 → EDINP 01-29 02:27 → INTOOBSV 01-29 02:27 → SUATTDRO 01-29 02:27 → 3W 01-29 04:43